=== PATIENT | male | born 1940 | race Caucasian/White ===

== ENCOUNTER 2017-01-17 16:27 | Observation (INO) | payer MEDICARE, BC ==
[2017-01-17 17:28] LABS: Hematocrit 41 % (42-52); Hemoglobin 14.3 g/dl (14.0-18.0); Mean Corpuscular HGB Conc 35 g/dl (31-36); Mean Corpuscular Hemoglobin 33 pg (27-31); Mean Corpuscular Volume 95 fL (80-94); Mean Platelet Volume 8 um3 (7.4-10.4); Red Blood Count 4.37 10^6/ul (4.0-5.4); Red Cell Distribution Width 13 % (10.5-15); White Blood Count 7.1 10^3/ul (3.5-10.8)
[2017-01-17 17:51] LABS: ALT 17 U/L (7-52); AST 21 U/L (13-39); Alkaline Phosphatase 84 U/L (34-104); Anion Gap 11 mmol/L (2-11); BUN/Creatinine Ratio 18.3 (8-20); Blood Urea Nitrogen 24 mg/dL (6-24); CO2 Carbon Dioxide 23 mmol/L (22-32); Calcium 9.4 mg/dL (8.6-10.3); Chloride 97 mmol/L (101-111); EGFR African American 68.4 (>60); EGFR Non-African American 53.2 (>60); Globulin 3.2 g/dL (2-4); Glucose 245 mg/dL (70-100); Magnesium 1.5 mg/dL (1.9-2.7); Potassium 4.2 mmol/L (3.5-5.0); Sodium 131 mmol/L (133-145); Total Protein 7.2 g/dL (6.4-8.9)
--- NOTE | 2017-01-17 17:53 | RAD ---
Indication: Palpitations. Single frontal view of the chest performed at 1730 hours was reviewed. Comparison is made with previous exam dated June 16, 2016. No mediastinal shift is noted. Heart is of normal size and configuration. Lung galvez appear clear. IMPRESSION: NO ACTIVE CARDIOPULMONARY DISEASE IS NOTED.
[2017-01-17 17:54] LABS: Troponin I 0.03 ng/mL (<0.04)
[2017-01-17 18:30] LABS: TSH (Thyroid Stimulating Horm) 1.23 mcIU/mL (0.34-5.60)
[2017-01-17] MEDS ORDERED: Diltiazem IV* 5 MG/ML 5 ML VIAL (for loading dose/IV Push) (25 MG) IV SLOW PU ONE (18:35)
[2017-01-17] MEDS ORDERED: Diltiazem IV VIAL* 125 MG in D5W 100 ML BAG* 100 ML IV ONE (18:36)
[2017-01-17] MEDS ORDERED: D5W 100 ML BAG* 100 ML ONE (18:41)
--- NOTE | 2017-01-17 19:42 | HP ---
H&P (Free Text) History and Physical: PCP: Fawn Barajas MD Date/Time of Evaluation: 01/17/2017 193 CC: new irregular HR found at Nj Hitchcock MD's office HPI: Mr Mata is a 76YO male presented this afternoon to Nj Hitchcock's office for routine follow up of initiation of amlodipine when a new irregular rhythm was discovered and he was recommended to come to [facility] [place] [place] ED for further evaluation. Mr Mata denies any symptoms, specifically no chest pain/pressure, SOB, palpitations, N/V, sweating, light-headedness, or other issues. He has noticed some unsteadiness while in the shower when he closes his eyes, but denies unsteady gait or recent falls. Evaluation reveals an ECG showing AFLUT/RVR. Vitals are stable. Labs are notable for an unexplained macrocytosis, stable CKD stage 3a, magnesium 1.5, BNP of 424, & troponin of 0.03. TSH is 1.23. PMedHx CAD/stent x2 DM2 w/ BLE polyneuropathy HTN HLD [place]-Schlatter disease HX YOVANY relieved w/ weight loss GERD BPH erectile dysfunction Allergies No Known Allergies Allergy (Verified 04/06/13 07:27) Ambulatory Orders Pantoprazole TAB (NF) [Protonix TAB (NF)] 40 mg PO BEDTIME 10/19/12 Sildenafil Citrate [Viagra] 25 mg PO DAILY PRN 10/19/12 Terazosin CAP* [Hytrin CAP*] 5 mg PO DAILY 10/19/12 Tadalafil [Cialis] 20 mg PO DAILY PRN 01/14/13 Clopidogrel TAB* [Plavix TAB*] 75 mg PO DAILY 01/27/14 Finasteride TAB* [Proscar TAB*] 5 mg PO DAILY 12/12/16 glipiZIDE TAB.XL* [Glucotrol Xl*] 10 mg PO BID 12/12/16 Aspirin EC Low Dose* [Ecotrin EC Low Dose 81 MG*] 81 mg PO DAILY 01/17/17 Lisinopril [Lisinopril 40 MG-] 40 mg PO DAILY 01/17/17 amLODIPine TAB* [Norvasc TAB*] 2.5 mg PO DAILY 01/17/17 PSurgHx tonsillectomy cardiac stent x2 appendectomy inguinal hernia repair R FRIEDA SocHx: former smoker quit ~30years ago, minimal alcohol, no recreational drugs; 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 with his ; 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, 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[employer]; full 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 status FamHx: positive for HTN, DM2 ROS: as above, otherwise reviewed and all were negative Constitutional: NAD, normally developed, overweight white male vitals: Vital Signs Temp 36.4 C 01/17/17 20:16 Pulse 81 01/17/17 20:16 Resp 20 01/17/17 20:16 BP 146/77 01/17/17 20:16 Pulse Ox 97 01/17/17 20:00 Intake & Output 01/16/17 01/17/17 01/17/17 23:59 11:59 23:59 Weight 86.183 kg HEENM: atraumatic; sclera/conjunctiva: non-icteric/clear; hearing: clinically intact; oropharynx: clear, mucosa moist Neck: soft tissue: non-tender; thyroid: normal Pulmonary: clear to auscultation bilaterally, good aeration, no accessory muscle use CV: RR/RR, normal S1S2, no carotid bruit, no jugular venous distention, 2+ B DP/ PT, no edema Abdominal: soft, non-distended, non-tender, no rebound/guarding/rigidity, normoactive bowel sounds, no hepatosplenomegaly or masses, no costovertebral angle tenderness Musculoskeletal: general: grossly intact; gait: stable Integumental: normal appearance and texture of exposed skin Psychiatric orientation: AA&O to PPS affect: calm mood: jovial eye contact: good content: reliable responses: timely insight: good Testing: Lab Results 01/17/17 01/17/17 01/17/17 Range/Units 17:12 17:12 17:12 WBC 7.1 (3.5-10.8) 10^3/ul RBC 4.37 (4.0-5.4) 10^6/ul Hgb 14.3 (14.0-18.0) g/dl Hct 41 L (42-52) % MCV 95 H (80-94) fL MCH 33 H (27-31) pg MCHC 35 (31-36) g/dl RDW 13 (10.5-15) % Plt Count 217 (150-450) 10^3/ul MPV 8 (7.4-10.4) um3 Neut % (Auto) 68.6 (38-83) % Lymph % (Auto) 16.8 L (25-47) % Divide % (Auto) 8.6 (1-9) % Eos % (Auto) 4.9 (0-6) % Baso % (Auto) 1.1 (0-2) % Absolute Neuts (auto) 4.9 (1.5-7.7) 10^3/ul Absolute Lymphs (auto) 1.2 (1.0-4.8) 10^3/ul Absolute Monos (auto) 0.6 (0-0.8) 10^3/ul Absolute Eos (auto) 0.4 (0-0.6) 10^3/ul Absolute Basos (auto) 0.1 (0-0.2) 10^3/ul Absolute Nucleated RBC 0 10^3/ul Nucleated RBC % 0.1 Sodium 131 L (133-145) mmol/L Potassium 4.2 (3.5-5.0) mmol/L Chloride 97 L (101-111) mmol/L Carbon Dioxide 23 (22-32) mmol/L Anion Gap 11 (2-11) mmol/L BUN 24 (6-24) mg/dL Creatinine 1.31 H (0.67-1.17) mg/dL Est GFR ( Amer) 68.4 (>60) Est GFR (Non-Af Amer) 53.2 (>60) BUN/Creatinine Ratio 18.3 (8-20) Glucose 245 H (70-100) mg/dL POC Glucose (mg/dL) (74-106) mg/dL Lactic Acid 1.8 (0.5-2.0) mmol/L Calcium 9.4 (8.6-10.3) mg/dL Magnesium 1.5 L (1.9-2.7) mg/dL Total Bilirubin 0.70 (0.2-1.0) mg/dL AST 21 (13-39) U/L ALT 17 (7-52) U/L Alkaline Phosphatase 84 (34-104) U/L Troponin I 0.03 (<0.04) ng/mL B-Natriuretic Peptide ( - 100) pg/mL Total Protein 7.2 (6.4-8.9) g/dL Albumin 4.0 (3.2-5.2) g/dL Globulin 3.2 (2-4) g/dL Albumin/Globulin Ratio 1.3 (1-3) TSH 1.23 (0.34-5.60) mcIU/mL 01/17/17 01/17/17 Range/Units 17:12 18:46 WBC (3.5-10.8) 10^3/ul RBC (4.0-5.4) 10^6/ul Hgb (14.0-18.0) g/dl Hct (42-52) % MCV (80-94) fL MCH (27-31) pg MCHC (31-36) g/dl RDW (10.5-15) % Plt Count (150-450) 10^3/ul MPV (7.4-10.4) um3 Neut % (Auto) (38-83) % Lymph % (Auto) (25-47) % Divide % (Auto) (1-9) % Eos % (Auto) (0-6) % Baso % (Auto) (0-2) % Absolute Neuts (auto) (1.5-7.7) 10^3/ul Absolute Lymphs (auto) (1.0-4.8) 10^3/ul Absolute Monos (auto) (0-0.8) 10^3/ul Absolute Eos (auto) (0-0.6) 10^3/ul Absolute Basos (auto) (0-0.2) 10^3/ul Absolute Nucleated RBC 10^3/ul Nucleated RBC % Sodium (133-145) mmol/L Potassium (3.5-5.0) mmol/L Chloride (101-111) mmol/L Carbon Dioxide (22-32) mmol/L Anion Gap (2-11) mmol/L BUN (6-24) mg/dL Creatinine (0.67-1.17) mg/dL Est GFR ( Amer) (>60) Est GFR (Non-Af Amer) (>60) BUN/Creatinine Ratio (8-20) Glucose (70-100) mg/dL POC Glucose (mg/dL) 181 H (74-106) mg/dL Lactic Acid (0.5-2.0) mmol/L Calcium (8.6-10.3) mg/dL Magnesium (1.9-2.7) mg/dL Total Bilirubin (0.2-1.0) mg/dL AST (13-39) U/L ALT (7-52) U/L Alkaline Phosphatase (34-104) U/L Troponin I (<0.04) ng/mL B-Natriuretic Peptide 424 H ( - 100) pg/mL Total Protein (6.4-8.9) g/dL Albumin (3.2-5.2) g/dL Globulin (2-4) g/dL Albumin/Globulin Ratio (1-3) TSH (0.34-5.60) mcIU/mL ECG, personally reviewed: AFLUT rate 124, no ischemia CXR, personally reviewed: IMPRESSION: NO ACTIVE CARDIOPULMONARY DISEASE IS NOTED. Impression: 76M presenting with incidental finding of asymptomatic AFLUT/RVF DIAGNOSIS & PLAN Primary AFLUT/RVR : [id number] 3, w/o fall risk, anticoagulation indicated; discussed various agents comparatively & he agrees w/ rivaroxaban : diltiazem bolus/GTT initiated in ED, continue : start heparin GTT tonight w/ plan to transition to rivaroxaban on discharge : supplemental oxygen : trend troponin : check ECHO in AM : consider formal cardiology consult in AM : will make NPO after midnight, in case a stress test is desired : supportive care hypoMagnesemia : replete & recheck Secondary macrocytosis : check B12 & folate CAD/stent x2 : continue aspirin/clopidogrel DM2 w/ BLE polyneuropathy : check A1c : continue glipizide : correctional lispro protocol : consistent carb diet HTN : hold amlodipine : plan to transition from diltiazem GTT to PO HLD : heart healthy diet GERD : continue pantoprazole BPH : continue finasteride Admission Rational: CDU observation for new onset AFLUT/RVR DVTp: heparin GTT Code Status: full HCP:
[2017-01-17] MEDS ORDERED: traMADol TAB* 50 MG PO PRN (20:31)
[2017-01-17] MEDS ORDERED: Ondansetron INJ* 2 MG/ML VIAL IV PRN (20:31)
[2017-01-17] MEDS ORDERED: Albuterol 2.5 MG/3 ML NEB.SOL* (0.083%) INH PRN (20:31)
[2017-01-17] MEDS ORDERED: Acetaminophen TAB* 325 MG PO PRN (20:31)
[2017-01-17] MEDS ORDERED: Melatonin (NF) 3 MG TAB PO PRN (20:31)
[2017-01-17] MEDS ORDERED: Magnesium Sulfate 2 GM IV* 2 GM/50 ML BAG IVPB ONE (20:45)
[2017-01-17] MEDS ORDERED: Heparin VIAL(*) 5000 UNITS/ML VIAL (FIVE THOUSAND) IV SCH (21:00)
[2017-01-17] MEDS ORDERED: Diltiazem IV VIAL* 125 MG in D5W 100 ML BAG* 100 ML IV SCH (21:00)
[2017-01-17 21:22] LABS: Folate > 20.00 ng/mL (>3.99)
[2017-01-17 21:23] LABS: Vitamin B12 654 pg/mL (180-914)
[2017-01-17] MEDS: glipiZIDE TAB.XL* 5 MG PO SCH (21:54)
[2017-01-17] MEDS: CMCS Pantoprazole TAB (NF) 40 MG TAB PO SCH (21:55)
[2017-01-17] MEDS: Insulin LISPRO* 1 UNITS UNIT SUBCUT SCH (21:56)
[2017-01-17] MEDS: Docusate CAP* 100 MG PO SCH (22:25)
[2017-01-17] MEDS: Heparin DRIP 25,000 UNITS(*) 25,000 UNITS/500 ML BAG IVPB SCH (22:48)
[2017-01-18 07:27] LABS: BUN/Creatinine Ratio 18.7 (8-20); Calcium 8.9 mg/dL (8.6-10.3); EGFR African American 63.9 (>60); EGFR Non-African American 49.7 (>60); Potassium 4.1 mmol/L (3.5-5.0)
[2017-01-18 07:29] LABS: Troponin I 0.02 ng/mL (<0.04)
[2017-01-18] MEDS: Insulin LISPRO* 1 UNITS UNIT SUBCUT SCH ×4 (08:08→20:35)
[2017-01-18] MEDS ORDERED: Clopidogrel TAB* 75 MG PO SCH (09:00)
[2017-01-18] MEDS ORDERED: amLODIPine TAB* 5 MG PO SCH (09:00)
[2017-01-18] MEDS ORDERED: Terazosin CAP* 1 MG PO SCH (09:00)
[2017-01-18] MEDS ORDERED: Midazolam* 1 MG/ML 5 ML VIAL (5 MG) ONE ×2 (14:41→14:53)
[2017-01-18] MEDS ORDERED: fentaNYL* 50 MCG/ML 2 ML VIAL (100 MCG VIAL) ONE (14:42)
[2017-01-18] MEDS ORDERED: Flumazenil* 0.1 MG/ML 5 ML MDV ONE (14:53)
[2017-01-18] MEDS ORDERED: Naloxone* 0.4 MG/ML 1 ML VIAL ONE (14:53)
--- NOTE | 2017-01-18 14:57 | ECHO ---
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 Completed at 1046. Left Ventricle: The left ventricular chamber size is decreased. Moderate concentric left ventricular hypertrophy is observed. There is increased basal septal hypertrophy noted without evidence of an increased gradient across the left ventricular outflow tract. The estimated ejection fraction is 55-60%. There is no consistent Doppler evidence of clinically significant diastolic dysfunction. Left Atrium: The left atrium is slightly dilated. Right Ventricle: The right ventricular cavity size is normal. The right ventricular global systolic function is normal. Right Atrium: The right atrial cavity size is normal. Aortic Valve: The aortic valve is trileaflet. The aortic valve leaflets are mildly thickened. There is mild thickening of the non coronary cusp. Systolic excursion of the non coronary cusp is reduced. There is no evidence of aortic regurgitation. There is no evidence of aortic stenosis. Mitral Valve: The mitral valve leaflets appear normal. There is trace to mild mitral regurgitation. There is no evidence of mitral stenosis. Tricuspid Valve: The tricuspid valve leaflets are normal. There is a physiologic tricuspid regurgitation. Unable to estimate the right ventricular systolic pressure. Pulmonic Valve: The pulmonic valve appears normal. There is no evidence of pulmonic regurgitation. There is no pulmonic stenosis. Pericardium: A pericardial fat pad is visualized. Aorta: There is no dilatation of the ascending aorta. There is no dilatation of the aortic arch. There is no dilation of the aortic root. Pulmonary Artery: The main pulmonary artery appears normal. Venous: The venous system is not well visualized. Conclusions Moderate concentric left ventricular hypertrophy is observed. There is increased basal septal hypertrophy noted without evidence of an increased gradient across the left ventricular outflow tract. The estimated ejection fraction is 55-60%. The left atrium is slightly dilated. The aortic valve leaflets are mildly thickened. Systolic excursion of the non coronary cusp is reduced. There is trace to mild mitral regurgitation. There is a physiologic tricuspid regurgitation. Similar to 11/2016 except that mild mitral stenosis was reported last time. Patient in atrial flutter this time. Measurements Name Value Normal Range RVIDd (AP) 2D 3.8 cm (0.9 - 2.6) RVDdMajor (2D) 3.4 cm (2.2 - 4.4) RAd ISD 4CH 5 cm (3.4 - 4.9) RA (A4C)W 3.4 cm (2.9 - 4.6) IVSd (2D) 1.5 cm (0.6 - 1) LVPWd (2D) 1.4 cm (0.6 - 1) LVIDd (2D) 3.5 cm (3.6 - 5.4) LVIDs (2D) 2.4 cm - LV FS (2D) 32 % (25 - 45) Aortic Annulus 2.1 cm (1.4 - 2.6) Ao root diameter (2D) 3.4 cm (2.1 - 3.5) Ascending Ao 3.3 cm (2.1 - 3.4) Aortic arch 2.9 cm (1.8 - 3.4) Descending Ao 0.5 cm - LA dimension (AP) 2D 3.9 cm (2.3 - 3.8) LAd ISD 4CH 5.4 cm (2.9 - 5.3) LA ISD 4CH W 4 cm (2.5 - 4.5) Name Value Normal Range LA ESV SP 4CH (A/L) 57 ml - LA ESV SP 2CH (A/L) 64 ml - LA ESV BP (A/L) 62 ml - LA ESV BP (A/L) index 30.9 ml/m2 - LA ESV SP 4CH (MOD) 55 ml - LA ESV SP 2CH (MOD) 61 ml - Name Value Normal Range MV E-wave Vmax 1.1 m/sec - MV deceleration time 113 msec - MV A-wave Vmax 1 m/sec - MV E:A ratio 1.06 ratio - LV septal e' Vmax 0.09 m/sec - LV lateral e' Vmax 0.07 m/sec - Name Value Normal Range AV Vmax 1.3 m/sec - AV VTI 26.7 cm - AV peak gradient 6.55 mmHg - AV mean gradient 3.2 mmHg - LVOT Vmax 0.8 m/sec - LVOT VTI 16.4 cm - LVOT peak gradient 2.32 mmHg - LVOT mean gradient 0.98 mmHg - Name Value Normal Range TR Vmax 2.4 m/sec - TR peak gradient 23 mmHg - RAP 8 mmHg - RVSP 31 mmHg - Name Value Normal Range PV Vmax 0.6 m/sec - PV peak gradient 1.7 mmHg -
[2017-01-18] MEDS ORDERED: Metoprolol Tartrate IV* 1 MG/ML 5 ML VIAL ONE (15:16)
[2017-01-18] MEDS: glipiZIDE TAB.XL* 5 MG PO SCH ×2 (15:53→20:25)
[2017-01-18] MEDS: Docusate CAP* 100 MG PO SCH ×2 (15:53→20:25)
[2017-01-18] MEDS: Aspirin EC Low Dose* 81 MG TAB.EC PO SCH (15:53)
[2017-01-18] MEDS: Finasteride TAB* 5 MG PO SCH (15:53)
[2017-01-18] MEDS: Lisinopril TAB* 10 MG PO SCH (15:53)
[2017-01-18] MEDS ORDERED: Atenolol TAB* 25 MG PO ONE (16:06)
[2017-01-18] MEDS: CMCS Pantoprazole TAB (NF) 40 MG TAB PO SCH (20:25)
--- NOTE | 2017-01-18 20:30 | TEE ---
Patient: JON BENTON [facility] Rec#: [id number] : 1940 Date: 01/18/2017 Age: 76y Height: 177.8 cm / 70.0 in Weight: 86.2 kg / 190.0 lbs Sex: M BSA: 2 Room#: [facility] Admit Date#: 01/17/2017 Type: Inpatient Referring: Sarah Bennett MD Performing: Silas Mccurdy MD Reading: Silas Mccurdy MD Lead Applications Developer: Nicolle Ladd RN RDCS Nurse: Mercedez Zamora RN CC: Ron Barajas MD Transesophageal Echocardiogram Indication: Atrial flutter BP: 136/73 HR: 84 Rhythm: A-Flutter Findings History: CAD, DM, HTN, HLD, former smoker, YOVANY in the past, [place]-Schlatter disease. Technical Comments: The study quality is good. No transgastric images were obtained due to the history of Schatzki Ring. Left Ventricle: The left ventricular chamber size is normal. Global left ventricular wall motion and contractility are within normal limits. There is normal left ventricular systolic function. The estimated ejection fraction is 55-60%. Left Atrium: The left atrium is mildly dilated. Spontaneous echo contrast is present in the left atrium cavity. No thrombus is visualized within the left atrium. There is no thrombus visualized in the left atrial appendage. Right Ventricle: The right ventricular cavity size is normal. The right ventricular global systolic function is normal. Right Atrium: The right atrial cavity size is normal. A prominent chiari network is noted in the right atrium. Interatrial septum appears intact without evidence of shunting. There is no patent foramen ovale visualized. The interatrial septum is mobile. A patent foramen ovale is not demonstrated with color Doppler and agitated contrast. Delayed appearance of saline contrast bubbles is noted in the left atrium indicating intrapulmonary shunting. Aortic Valve: The aortic valve is trileaflet. The aortic valve leaflets are mildly thickened. There is moderate thickening of the non coronary cusp. Systolic excursion of the non coronary cusp is reduced. There is aortic annular calcification. There is a trace of aortic regurgitation. There is mild aortic stenosis. Mitral Valve: The mitral valve leaflets are mildly thickened. Mitral valve leaflet mobility is mildly restricted. There is trace to mild mitral regurgitation. There is mild mitral stenosis. Tricuspid Valve: The tricuspid valve leaflets are normal. There is trace tricuspid regurgitation. Pulmonic Valve: The pulmonic valve structure is not well visualized. Pericardium: There is no significant pericardial effusion. Aorta: There is no dilatation of the ascending aorta. The aortic root is normal in size. There is mild atherosclerotic plaque seen in the aorta. Pulmonary Artery: The main pulmonary artery is not well visualized. Venous: The bicaval view was obtained and appears normal. The pulmonary veins appear normal. 2 of 4 pulmonary veins are visualized. NATALIE Procedures: History and physical as well as labs were reviewed. The patient was in a fasting state. Risks and benefits of the procedure, including alternatives, were discussed and written informed consent was obtained. The patient and/or their health care life assurance representative expressed understanding of the procedure, risks and benefits. Baseline and continuous monitoring of blood pressure, heart rate, pulse oximetry and heart rhythm was performed throughout the procedure. The appropriate time-out procedure was performed as per [facility] protocol. The patient was placed in the left lateral decubitus position. The patient received IV Midazolam with a total dose of 4 mg. The patient received IV Fentanyl with a total dose of 25 mcg. An oral bite block was inserted for protection of oral dentition. The multiplane transesophageal echocardiogram probe was inserted through the posterior oropharynx and advanced into the esophagus without difficulty. Multiple 2D images were obtained of the heart and its related structures. Color flow Doppler was used for evaluation. Spectral Doppler was also used. The transgastric view was not obtained as it was contraindicated by the patient's medical condition. The atrial septum was interrogated with color flow Doppler. At the conclusion of the procedure the probe was removed with continuous suction without complications. The patient tolerated the procedure with no apparent complications. Contrast: Normal saline was used as contrast for the bubble study. Image 56. Conclusions Global left ventricular wall motion and contractility are within normal limits. The estimated ejection fraction is 55-60%. The left atrium is mildly dilated. Spontaneous echo contrast is present in the left atrium cavity. No thrombus is visualized within the left atrium or the left atrial appendage. There is mild aortic stenosis. Mitral valve leaflet mobility is mildly restricted. There is trace to mild mitral regurgitation. There is mild mitral stenosis. There is mild atherosclerotic plaque seen in the aorta. Measurements Name Value Normal Range Aortic Annulus 2.5 cm (1.4 - 2.6) Ao root diameter (2D) 3.2 cm (2.1 - 3.5) Ascending Ao 3 cm (2.1 - 3.4) Name Value Normal Range MV E-wave Vmax 0.96 m/sec - MV deceleration time 153 msec - Name Value Normal Range MV Vmax 1 m/sec - MV VTI 17.8 cm - MV peak gradient 4 mmHg - MV mean gradient 1.9 mmHg - MV PHT 56 msec - MVA (PHT) 3.9 cm2 -
[2017-01-18] MEDS: Heparin DRIP 25,000 UNITS(*) 25,000 UNITS/500 ML BAG IVPB SCH (21:55)
--- NOTE | 2017-01-18 22:41 | CONS ---
CC: Dr. Barajas; Dr. Hitchcock CARDIOLOGY CONSULTATION REPORT: DATE OF CONSULT: 01/18/17 PATIENT OF: Dr. Barajas and Dr. Hitchcock CONSULTING: Sarah Bennett MD REASON FOR EVALUATION: Atrial flutter. 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 He was asymptomatic. He reports that he was in his usual state of his health until about 3 weeks ago when he was noted to have high blood pressure and was started on amlodipine 2.5 mg a day. About a week ago, he said that he took 2 tablets of Cialis and did not get the appropriate effect and took a 25 mg dose of Viagra. He subsequently developed low blood pressures and felt weak. He took his home blood pressure and his blood pressures were in the 60s. He stopped all his medicines for 4 days including atenolol and then restarted his medicines. He was seen in the office for followup evaluation of his blood pressure and was noted to be in atrial flutter with a rapid ventricular response. He reports that he is completely asymptomatic. He denies any syncope, near syncope, chest pain, orthopnea, or PND. He does drink 3 drinks a week and has two large mugs of coffee that is equivalent to 4 mugs of coffee a day. 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 He says everyday he is out fixing things, doing chores, chopping wood and has no problem doing that. He denies syncope, no orthopnea, no peripheral edema. He does have a history of heart disease but presented with dyspnea, not chest discomfort. PAST MEDICAL HISTORY: His past medical history includes coronary disease, status post stenting x2 in 2012 in [place], diabetes, bilateral lower extremity neuropathy. He lost 40 pounds over the last year or so and he has been able to reduce his diabetic medicine and eliminate using the CPAP and eliminate his gout medications. He has a history of hypertension, hyperlipidemia, [place] Schlatter disease, obstructive sleep apnea relieved with weight loss, gastroesophageal reflux, BPH, erectile dysfunction, gout. He also had retinal tears in April requiring surgery. He also has a history of Schatzki' s ring and has had that treated by anjel last time about 5 years ago. He saw Dr. Kerns recently and is asymptomatic. PAST SURGICAL HISTORY: Include stenting 5 years ago, coronary stenting. He has had Schatzki's ring bougied, cataract removal, right hip replacement, and retinal laser surgery for tear in April. MEDICATIONS: According to our office note include: 1. Amlodipine 2.5 mg a day. 2. Atenolol 25 mg a day. 3. Aspirin 325 mg a day. 4. Terazosin 5 mg a day. 5. Amoxicillin p.r.n. procedures for SB prophylaxis for his hip. 6. Pantoprazole 40 mg a day. 7. Viagra 25 mg p.r.n. 8. Lisinopril 40 mg a day. 9. Glipizide 10 mg a day. 10. Cialis 10 mg a day. 11. Clopidogrel 75 mg a day. ALLERGIES: He has no known drug allergies. FAMILY HISTORY: His father of heart issues. He had a sibling of lung cancer. SOCIAL HISTORY: He is . He lives with his . He has two adult children. ROS: neg x 12 except as above. PHYSICAL EXAM: He is well developed, well nourished gentleman, in no apparent distress. No significant JVD. See full sheet for vital signs. Heart rate in the 80s, blood pressure was 113/65 at 1 a.m. Extraocular muscles intact. Sclerae anicteric. Carotids 2+ without bruits. No cervical adenopathy, no thyromegaly. Chest: Clear. Abdomen: Obese. Bowel sounds present. Nontender , no hepatosplenomegaly. Femoral pulses intact without bruits. Distal pulses intact. No edema. Motor strength 5/5 strength bilaterally, deep tendon reflexes 2/4. Alert and oriented x3. DIAGNOSTIC STUDIES/LAB DATA: Include sodium 134, potassium 4.1, BUN 26, creatinine of 1.9, which usually runs between 1.5 and 2. It was 1.2 in October. White count 7.1, hematocrit 41, MCV 95. EKG from yesterday revealed atrial flutter with RSR prime in V1, counterclockwise rotation and the Aflutter was new compared to previous May 2016 when he had sinus neil at 46. His EKG from this morning revealed atrial flutter with controlled ventricular response in the 70s, counterclockwise rotation, RSR prime in V1. Troponin was 0.03 and 0.02. Chest x-ray, no active cardiopulmonary disease and he did have an echocardiogram performed which revealed trace to mild MR, trace TR, normal LV function, mild aortic sclerosis. IMPRESSION: My impression is that Mr. Mata has new onset of atrial flutter uncertain duration but probably started in the last 3 weeks when he was seen in the office 3 weeks ago. The Aflutter may have been contributed to by holding his beta- ezeqiuel for 4 days. He also has a history of sleep apnea, diabetes, hypertension, and obesity in the past and his age which will also contribute to the likelihood of recurrent Aflutter, AFib. I did discuss with him and his the diagnosis and prognosis, we discussed the importance of anticoagulation given his increased risk of CVA. We also discussed potential for bleeding. We also explained that we need to control his rate to avoid tachycardia induced cardiomyopathy and dysfunction. They also understand that he may have recurrent Aflutter despite attempt at cardioversion. We also discussed the importance of continuous medicines without interruption and dangers of taking too much Viagra or Cialis in the setting of multiple antihypertensive medicines which could contribute to hypotension and might be life threatening. We also discussed potential for esophageal injury given the history of Schatzki's ring. However, that has been stable with no symptoms, this most likely is relatively low risk situation. Informed consent was discussed and patient understands and agrees to proceed with the proposed transesophageal echocardiogram and cardioversion. I also placed a call to Dr. Kerns, he is not available and discussed the case with Dr. Hitchcock. For the time being, I have recommended the following: We will continue his rate control for now. He is to continue anticoagulation. We will perform a NATALIE guided cardioversion. He understands the potential risk of stroke and esophageal injury and sleep apnea. technician terminal and repeater I would avoid triple anticoagulation therapy given the increased risk of bleeding as discussed with Dr. Hitchcock. I think it is reasonable to stop his Plavix now it has been 5 years since his stenting. He would avoid caffeine and alcohol which could lower the threshold for his atrial flutter. We would continue anticoagulation indefinitely. If he has recurrent atrial flutter we could consider either antiarrhythmic therapy or a referral for ablation. He is to follow up with Dr. Hitchcock concerning these issues. [id number]/[facility] #: [id number] ERICA
[2017-01-19] MEDS: Docusate CAP* 100 MG PO SCH (07:25)
[2017-01-19] MEDS: Insulin LISPRO* 1 UNITS UNIT SUBCUT SCH ×2 (07:44→11:26)
[2017-01-19 08:05] VITALS: BP 133/71
[2017-01-19] MEDS ORDERED: Terazosin CAP* 5 MG PO SCH (09:00)
[2017-01-19] MEDS: Lisinopril TAB* 10 MG PO SCH (09:03)
[2017-01-19] MEDS: Finasteride TAB* 5 MG PO SCH (09:03)
[2017-01-19] MEDS: glipiZIDE TAB.XL* 5 MG PO SCH (09:03)
[2017-01-19] MEDS: Aspirin EC Low Dose* 81 MG TAB.EC PO SCH (10:41)
[2017-01-19] MEDS ORDERED: Apixaban* 5 MG TAB PO SCH (11:00)
--- NOTE | 2017-01-19 12:55 | DS ---
CC: Ron Barajas MD; Yogesh Hitchcock MD DISCHARGE SUMMARY: DATE OF ADMISSION: 01/17/17 DATE OF DISCHARGE: 01/19/17 DISCHARGE DIAGNOSES: 1. Atrial flutter. 2. History of hypertension. 3. Type 2 diabetes mellitus with peripheral neuropathy. 4. History of gastroesophageal reflux disease. 5. History of benign prostatic hypertrophy. 6. Erectile dysfunction. 7. History of coronary artery disease, status post 2 stents. 8. History of Schatzki's ring. HISTORY: aDrio Mata is a 76-year-old man admitted after he was found to be in atrial flutter at his development specialist's office. Please see the dictated admission note for details of the present illness, past medical history, family history, social and personal history, review of systems, and physical examination. An addition to the history is that he had actually taken high doses of Viagra and Cialis, felt poorly after that. He then took his blood pressure with his blood pressure cuff and found blood pressure in the 60s ( blood pressure cuff inaccurate). He then stopped taking his medications for 4 days. LABORATORY DATA: CBC on admission, WBC is 7.1, H and H 14.3/41, MCV 95, PLT 217 ,000. PTT on 01/17/17 was 25, 01/18/17 was 94.1, 01/18/17 was 65.9, 01/19/17 was 59.9. Chemistries on admission, sodium 131, potassium 4.2, chloride 97, CO2 23, BUN and creatinine 24/1.31, glucose 245, magnesium 1.5. Rest of the comprehensive metabolic panel was within normal limits. Troponin was 0.03, 0.03 , 0.02. Lactic acid 1.8. Hemoglobin A1c was elevated at 8.7%. BNP was 424 and 323. Folate, B12, TSH all normal. Glucoses ranged from 118 to 321. IMAGING: Chest x-ray on 01/17/17 showed no active cardiopulmonary disease. EKG on 01/17/17 showed atrial flutter with controlled ventricular response. EKG on 01/18/17 showed atrial flutter with 4:1 AV block, prolonged QTC. Transthoracic echocardiogram on 01/18/17 showed concentric LVH, basal septal hypertrophy, EF 55% to 60%, slight dilatation of the left atrium, mild aortic sclerosis, physiologic tricuspid regurgitation, mild mitral stenosis reported previously reported, not noted. Transesophageal echocardiogram, 01/18/17, showed no thrombus, mild left atrial dilatation, mild aortic stenosis, mild mitral stenosis. The patient had IV fentanyl 25 mcg and then underwent cardioversion and converted to sinus rhythm. Cardiology consultation Dr. Mccurdy, 01/17/17, felt that he had new onset of atrial flutter of uncertain duration, probably less than 3 weeks. He felt that it might have been that he had taken too much Viagra and Cialis. He recommended NATALIE cardioversion. Post cardioversion, he recommended discontinuing Plavix and heparin, starting Eliquis. He recommended continuing aspirin. He recommended restarting atenolol at low dose 12.5 mg. He is said to consider lowering the dose of lisinopril depending on his blood pressure. He recommended avoiding Cialis and Viagra (for now). He recommended the patient to check his blood pressure and pulse at home and to follow up. The patient was admitted. He was monitored. He underwent studies as noted above. His telemetry monitoring showed atrial flutter before cardioversion, sinus neil post cardioversion. His blood sugars were monitored. He was on heparin initially. At the time of discharge, he is feeling fine. He was feeling fine when he was admitted. His diet is to be his usual. He was told to not overdo caffeine. Activities as tolerated. DISCHARGE MEDICATIONS: 1. Aspirin 81 mg daily. 2. Eliquis 5 mg twice daily. 3. Atenolol 25 mg 1/2 pill once daily. 4. Lisinopril 40 mg once daily. 5. Glipizide extended release 10 mg twice daily. 6. Finasteride 5 mg once daily. 7. Pantoprazole 40 mg once daily. He was told to check his pulse daily, check his blood pressure daily, notify his MD if his pulse is over 80. He was told to not take amlodipine for now. He is to stop clopidogrel, he is to avoid Cialis and Viagra for now. His magnesium was noted to be slightly low in the hospital, this should be rechecked at the time of his doctor's visit. [id number]/[facility] #: [id number] [facility] HEALTH SYSTEMNikole
[2017-01-20] MEDS ORDERED: Lisinopril TAB* 10 MG PO SCH (09:00)
[2017-01-20] MEDS ORDERED: Atenolol TAB* 25 MG PO SCH (09:00)
--- NOTE | 2017-01-20 17:07 | ED ---
Yonathan Bertrand Anna, scribed for Frank Harris MD on 01/17/17 at 1651 . Palpitations / Dysrhythmia - HPI Summary HPI Summary: Patient is a 76 y/o male coming to [facility] after sudden onset of an episode of palpitations that occurred this afternoon. The patient was at his laundry washer s office when he had a slightly irregular heart rate according to an EKG conducted there. He has no current pain. His HR is varying from 110 to 130. His appointment with his laundry washer was to follow up from a recent switch to Amlodipine. His history is significant for CAD, HTN, HLD, NIDDM. 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 - Accompanied by family - Allergy/Home Medications Allergies/Adverse Reactions: Allergies Allergy/AdvReac Type Severity Reaction Status Date / Time No Known Allergies Allergy Verified 04/06/13 07:27 Home Medications: Home Medications Aspirin EC Low Dose* [Ecotrin EC Low Dose 81 MG*] 81 mg PO DAILY 01/17/17 [ History Confirmed 01/17/17] Lisinopril [Lisinopril 40 MG-] 40 mg PO DAILY 01/17/17 [History Confirmed ] amLODIPine TAB* [Norvasc TAB*] 2.5 mg PO DAILY 01/17/17 [History Confirmed 01/17] PMH/Surg Hx/FS Hx/Imm Hx Endocrine/Hematology History: Reports: Hx Diabetes Cardiovascular History: Reports: Hx Angina, Hx Coronary Artery Disease, Hx Hypercholesterolemia, Hx Hypertension Denies: Hx Myocardial Infarction, Hx Valvular Heart Disease Respiratory History: Reports: Hx Sleep Apnea Denies: Hx Asthma, Hx Chronic Obstructive Pulmonary Disease (COPD) GI History: Reports: Other GI Disorders - SHATSKY'S RING History: Reports: Hx Kidney Stones - DISTANT PAST -= NONE NOW Musculoskeletal History: Reports: Hx Arthritis - OSTEOARTHRITIS Sensory History: Reports: Hx Cataracts - BILATERAL, Hx Contacts or Glasses - GLASSES Denies: Hx Hearing Aid Opthamlomology History: Reports: Hx Cataracts - BILATERAL, Hx Contacts or Glasses - GLASSES - Surgical History Surgery Procedure, Year, and Place: LEFT HIP REPLACEMENT Hx Anesthesia Reactions: No Infectious Disease History: No Infectious Disease History: Denies: Traveled Outside the [place] in Last 30 Days - Family History Known Family History: Positive: Hypertension - Social History Lives: With Family Alcohol Use: Weekly Alcohol Amount: 4/week Substance Use Type: Reports: None Smoking Status (MU): Former Smoker Type: Cigarettes Amount Used/How Often: 3 ppd Have You Smoked in the Last Year: No Review of Systems Constitutional: Negative Eyes: Negative ENT: Negative Positive: Palpitations Respiratory: Negative Gastrointestinal: Negative Genitourinary: Negative Musculoskeletal: Negative Skin: Negative Neurological: Negative Psychological: Normal All Other Systems Reviewed And Are Negative: Yes Physical Exam Triage Information Reviewed: Yes Vital Signs On Initial Exam: Initial Vitals Temp Pulse Resp BP Pulse Ox 97.1 F 68 20 135/96 98 01/17/17 16:29 01/17/17 16:29 01/17/17 16:29 01/17/17 16:29 01/17/17 16:29 Vital Signs Reviewed: Yes Appearance: Positive: Well-Appearing, No Pain Distress Skin: Positive: Warm, Skin Color Reflects Adequate Perfusion, Dry Head/Face: Positive: Normal Head/Face Inspection Eyes: Positive: Normal ENT: Positive: Normal ENT inspection Neck: Positive: Supple, Nontender Respiratory/Lung Sounds: Positive: Clear to Auscultation, Breath Sounds Present Cardiovascular: Positive: IRR. Negative: RRR Abdomen Description: Positive: Nontender, Soft Bowel Sounds: Positive: Present Musculoskeletal: Positive: Normal Neurological: Positive: Normal Psychiatric: Positive: Affect/Mood Appropriate Diagnostics - Vital Signs Vital Signs Temp Pulse Resp BP Pulse Ox 01/17/17 16:29 97.1 F 68 20 135/96 98 - Laboratory Lab Results: Lab Results 01/17/17 01/17/17 01/17/17 Range/Units 17:12 17:12 17:12 WBC 7.1 (3.5-10.8) 10^3/ul RBC 4.37 (4.0-5.4) 10^6/ul Hgb 14.3 (14.0-18.0) g/dl Hct 41 L (42-52) % MCV 95 H (80-94) fL MCH 33 H (27-31) pg MCHC 35 (31-36) g/dl RDW 13 (10.5-15) % Plt Count 217 (150-450) 10^3/ul MPV 8 (7.4-10.4) um3 Neut % (Auto) 68.6 (38-83) % Lymph % (Auto) 16.8 L (25-47) % [place] % (Auto) 8.6 (1-9) % Eos % (Auto) 4.9 (0-6) % Baso % (Auto) 1.1 (0-2) % Absolute Neuts (auto) 4.9 (1.5-7.7) 10^3/ul Absolute Lymphs (auto) 1.2 (1.0-4.8) 10^3/ul Absolute Monos (auto) 0.6 (0-0.8) 10^3/ul Absolute Eos (auto) 0.4 (0-0.6) 10^3/ul Absolute Basos (auto) 0.1 (0-0.2) 10^3/ul Absolute Nucleated RBC 0 10^3/ul Nucleated RBC % 0.1 Sodium 131 L (133-145) mmol/L Potassium 4.2 (3.5-5.0) mmol/L Chloride 97 L (101-111) mmol/L Carbon Dioxide 23 (22-32) mmol/L Anion Gap 11 (2-11) mmol/L BUN 24 (6-24) mg/dL Creatinine 1.31 H (0.67-1.17) mg/dL Est GFR ( Amer) 68.4 (>60) Est GFR (Non-Af Amer) 53.2 (>60) BUN/Creatinine Ratio 18.3 (8-20) Glucose 245 H (70-100) mg/dL POC Glucose (mg/dL) (74-106) mg/dL Hemoglobin A1c (Less than 6.0) % Lactic Acid 1.8 (0.5-2.0) mmol/L Calcium 9.4 (8.6-10.3) mg/dL Magnesium 1.5 L (1.9-2.7) mg/dL Total Bilirubin 0.70 (0.2-1.0) mg/dL AST 21 (13-39) U/L ALT 17 (7-52) U/L Alkaline Phosphatase 84 (34-104) U/L Troponin I 0.03 (<0.04) ng/mL B-Natriuretic Peptide ( - 100) pg/mL Total Protein 7.2 (6.4-8.9) g/dL Albumin 4.0 (3.2-5.2) g/dL Globulin 3.2 (2-4) g/dL Albumin/Globulin Ratio 1.3 (1-3) Vitamin B12 654 (180-914) pg/mL Folate > 20.00 (>3.99) ng/mL TSH 1.23 (0.34-5.60) mcIU/mL 01/17/17 01/17/17 01/17/17 Range/Units 17:12 17:12 18:46 WBC (3.5-10.8) 10^3/ul RBC (4.0-5.4) 10^6/ul Hgb (14.0-18.0) g/dl Hct (42-52) % MCV (80-94) fL MCH (27-31) pg MCHC (31-36) g/dl RDW (10.5-15) % Plt Count (150-450) 10^3/ul MPV (7.4-10.4) um3 Neut % (Auto) (38-83) % Lymph % (Auto) (25-47) % [place] % (Auto) (1-9) % Eos % (Auto) (0-6) % Baso % (Auto) (0-2) % Absolute Neuts (auto) (1.5-7.7) 10^3/ul Absolute Lymphs (auto) (1.0-4.8) 10^3/ul Absolute Monos (auto) (0-0.8) 10^3/ul Absolute Eos (auto) (0-0.6) 10^3/ul Absolute Basos (auto) (0-0.2) 10^3/ul Absolute Nucleated RBC 10^3/ul Nucleated RBC % Sodium (133-145) mmol/L Potassium (3.5-5.0) mmol/L Chloride (101-111) mmol/L Carbon Dioxide (22-32) mmol/L Anion Gap (2-11) mmol/L BUN (6-24) mg/dL Creatinine (0.67-1.17) mg/dL Est GFR ( Amer) (>60) Est GFR (Non-Af Amer) (>60) BUN/Creatinine Ratio (8-20) Glucose (70-100) mg/dL POC Glucose (mg/dL) 181 H (74-106) mg/dL Hemoglobin A1c 8.7 H (Less than 6.0) % Lactic Acid (0.5-2.0) mmol/L Calcium (8.6-10.3) mg/dL Magnesium (1.9-2.7) mg/dL Total Bilirubin (0.2-1.0) mg/dL AST (13-39) U/L ALT (7-52) U/L Alkaline Phosphatase (34-104) U/L Troponin I (<0.04) ng/mL B-Natriuretic Peptide 424 H ( - 100) pg/mL Total Protein (6.4-8.9) g/dL Albumin (3.2-5.2) g/dL Globulin (2-4) g/dL Albumin/Globulin Ratio (1-3) Vitamin B12 (180-914) pg/mL Folate (>3.99) ng/mL TSH (0.34-5.60) mcIU/mL Result Diagrams: 01/17/17 17:12 01/18/17 07:00 Lab Statement: Any lab studies that have been ordered have been reviewed, and results considered in the medical decision making process. - Radiology CXR Xray Interpretation: No Acute Changes Radiology Interpretation Completed By: Radiologist - IMPRESSION: NO ACTIVE CARDIOPULMONARY DISEASE IS NOTED. - EKG 1640 Cardiac Rate: Tachycardia - 124 bpm EKG Rhythm: Atrial Flutter - variant from 2 to 1 to 5 to 1 block Course/Dx - Course Course Of Treatment: Mr. Mata was found durin a routine visit with the laundry washer to have A-Flutter with a relatively rapid response. He is asymptomatic and it is unclear how long this has been going on. He was slowed with cardizem and admitted by the hospitalist. - Diagnoses Provider Diagnoses: Atrial flutter with rapid ventricular response - Physician Notifications Discussed Care Of Patient With: Dr. Doherty (hospitalist) at 1922. Agrees to accept patient for admission. - Critical Care Time Critical Care Time: 30-74 min Discharge - Discharge Plan Condition: Stable Disposition: ADMITTED TO [facility] documentation as recorded by the Yonathan mares Anna accurately reflects the service I personally performed and the decisions made by me, Frank Harris MD.
== END 2017-01-19 12:30 | disposition home or self-care (01) ==
LOC: ED 16:27 → MEDTELE 19:23
PROVIDERS: ADMIT Hospitalist; ATTEND Internal Medicine Geriatric Medicine
DX: I48.92 Unspecified atrial flutter (principal); I10 Essential (primary) hypertension; E11.42 Type 2 diabetes mellitus with diabetic polyneuropathy; K21.9 Gastro-esophageal reflux disease without esophagitis; D75.89 Other specified diseases of blood and blood-forming organs; N40.0 Benign prostatic hyperplasia without lower urinary tract symptoms; I25.10 Atherosclerotic heart disease of native coronary artery without angina pectoris; I51.7 Cardiomegaly; Z95.5 Presence of coronary angioplasty implant and graft; K22.2 Esophageal obstruction; M92.50 Unspecified juvenile osteochondrosis of tibia and fibula; Z87.891 Personal history of nicotine dependence; Z79.01 Long term (current) use of anticoagulants; Z79.82 Long term (current) use of aspirin; Z79.84 Long term (current) use of oral hypoglycemic drugs; Z79.899 Other long term (current) drug therapy
CPT/HCPCS: 36415; 71010; 80048; 80053; 82607; 82746; 83036; 83605; 83735; 83880; 84443; 84484; 85025; 85730; 92960; 93005; 93312; 93325; 96365; 96366; 96367; 96372; 99291; A9270-GY; G0378; J1644; J2250; J2310; J3010

== ENCOUNTER 2017-01-22 18:55 | Emergency (ER) | payer MEDICARE, BC ==
[2017-01-22 19:04] VITALS: BP 141/71
--- NOTE | 2017-01-22 20:27 | ED ---
Skin Complaint - HPI Summary HPI Summary: Pt here w/ prolonged bleeding s/p finger slice on mandolin while preparing dinner tonight. He just started heparin and Eliquis this week as he's s/p cardiac procedure. Tetanus is UTD. No pain. States he would not have come in if the bleeding had stopped. - History of Current Complaint Chief Complaint: EDLacSutureRecheck Time Seen by Provider: 01/22/17 20:09 Stated Complaint: LEFT THUMB LAC Hx Obtained From: Patient Pain Intensity: 2 - Additional Pertinent History Primary Care Physician: SHANNAN - Allergy/Home Medications Allergies/Adverse Reactions: Allergies Allergy/AdvReac Type Severity Reaction Status Date / Time No Known Allergies Allergy Verified 04/06/13 07:27 PMH/Surg Hx/FS Hx/Imm Hx Previously Healthy: Yes Endocrine/Hematology History: Reports: Hx Anticoagulant Therapy - heparin and eliquis, Hx Diabetes Cardiovascular History: Reports: Hx Angina, Hx Coronary Artery Disease, Hx Hypercholesterolemia, Hx Hypertension Denies: Hx Myocardial Infarction, Hx Valvular Heart Disease Respiratory History: Reports: Hx Sleep Apnea Denies: Hx Asthma, Hx Chronic Obstructive Pulmonary Disease (COPD) GI History: Reports: Other GI Disorders - SHATSKY'S RING History: Reports: Hx Kidney Stones - DISTANT PAST -= NONE NOW Musculoskeletal History: Reports: Hx Arthritis - OSTEOARTHRITIS Sensory History: Reports: Hx Cataracts - BILATERAL, Hx Contacts or Glasses - GLASSES Denies: Hx Hearing Aid Opthamlomology History: Reports: Hx Cataracts - BILATERAL, Hx Contacts or Glasses - GLASSES - Surgical History Surgery Procedure, Year, and Place: LEFT HIP REPLACEMENT Hx Anesthesia Reactions: No Infectious Disease History: No Infectious Disease History: Denies: Traveled Outside the [place] in Last 30 Days - Family History Known Family History: Positive: Hypertension - Social History Occupation: Retired Lives: With Family Alcohol Use: Weekly Alcohol Amount: 4/week Substance Use Type: Reports: None Smoking Status (MU): Former Smoker Type: Cigarettes Amount Used/How Often: 3 ppd Length of Time of Smoking/Using Tobacco: 20 years Have You Smoked in the Last Year: No Review of Systems Positive: no symptoms reported Negative: Arthralgia, Myalgia, Decreased ROM Skin: Other - see HPI Negative: Weakness, Paresthesia, Numbness Psychological: Normal All Other Systems Reviewed And Are Negative: Yes Physical Exam Triage Information Reviewed: Yes Vital Signs On Initial Exam: Initial Vitals Temp Pulse Resp BP Pulse Ox 97.7 F 108 20 141/71 97 01/22/17 18:56 01/22/17 18:56 01/22/17 18:56 01/22/17 18:56 01/22/17 18:56 Vital Signs Reviewed: Yes Appearance: Positive: Well-Appearing, No Pain Distress, Well-Nourished Skin: Positive: Warm Diagnostics - Vital Signs Vital Signs Temp Pulse Resp BP Pulse Ox 01/22/17 18:56 97.7 F 108 20 141/71 97 - Laboratory Lab Statement: Any lab studies that have been ordered have been reviewed, and results considered in the medical decision making process.
== END 2017-01-22 20:40 | disposition home or self-care (01) ==
LOC: ED 18:55
DX: S61.012A Laceration without foreign body of left thumb without damage to nail, initial encounter (principal); W26.0XXA Contact with knife, initial encounter; Y93.G9 Activity, other involving cooking and grilling; Y92.9 Unspecified place or not applicable; Z87.891 Personal history of nicotine dependence
CPT/HCPCS: 99282

== ENCOUNTER 2017-06-04 20:02 | Emergency (ER) | payer MEDICARE, BC ==
[2017-06-04 20:17] VITALS: BP 183/69
== END 2017-06-04 21:35 | disposition left against medical advice (07) ==
LOC: ED 20:02
DX: S61.219A Laceration without foreign body of unspecified finger without damage to nail, initial encounter (principal); X58.XXXA Exposure to other specified factors, initial encounter; Y93.9 Activity, unspecified; Y92.89 Other specified places as the place of occurrence of the external cause; Z53.21 Procedure and treatment not carried out due to patient leaving prior to being seen by health care provider

== ENCOUNTER 2018-01-13 12:42 | Emergency (ER) | payer MEDICARE, BC ==
[2018-01-13] MEDS ORDERED: Ondansetron INJ* 2 MG/ML VIAL IV ONE (13:50)
[2018-01-13 14:15] LABS: ABS Basophils 0 10^3/ul (0-0.2); ABS Eosinophils 0.3 10^3/ul (0-0.6); ABS Lymphocytes 0.6 10^3/ul (1.0-4.8); ABS Monocytes 0.4 10^3/ul (0-0.8); ABS Neutrophils 3.8 10^3/ul (1.5-7.7); ABS Nucleated RBC 0 10^3/ul; Eosinophil % 5.7 % (0-6); Hematocrit 40 % (42-52); Hemoglobin 13.9 g/dl (14.0-18.0); Lymphocyte % 11.3 % (25-47); Mean Corpuscular HGB Conc 35 g/dl (31-36); Mean Corpuscular Hemoglobin 34 pg (27-31); Mean Corpuscular Volume 98 fL (80-94); Mean Platelet Volume 8 um3 (7.4-10.4); Nucleated Red Blood Cells % 0; Platelet Count 171 10^3/ul (150-450); Red Blood Count 4.11 10^6/ul (4.0-5.4); Red Cell Distribution Width 12 % (10.5-15); White Blood Count 5.1 10^3/ul (3.5-10.8)
[2018-01-13 14:30] LABS: EGFR Non-African American 45.4 (>60)
[2018-01-13 14:59] LABS: Urine Appearance Clear; Urine Blood Negative (Negative); Urine Color Straw; Urine Ketones Negative (Negative); Urine Protein Negative (Negative); Urine Specific Gravity 1.018 (1.010-1.030); Urine Urobilinogen Negative (Negative)
[2018-01-13] MEDS ORDERED: Iodixanol* (CONTRAST) 320 MG/ML 100 ML SDV IV ONE (15:52)
--- NOTE | 2018-01-13 16:41 | RAD ---
INDICATION: Low abdominal pain. Paucity of bowel movement. Assess for potential appendicitis. COMPARISON: June 20, 2012 CT. TECHNIQUE: Multidetector CT images were obtained from the lung bases to the ischial tuberosities with 100 mL Visipaque 320 IV and oral contrast. Multiplanar reformation. REPORT: Artifact from RIGHT hip prosthesis limits image quality at the pelvis. Emphysema and mild fibrosis at the lung bases. Calcified granuloma at the LEFT lower lobe. Coronary artery calcifications. Diffuse decreased density of the liver consistent with fatty infiltration. Small calcified liver and spleen granulomas. Unchanged 0.6 cm hypodense lesion at the LEFT hepatic lobe . No suspicious focal hepatic lesions. No CT abnormality of the gallbladder or biliary dilatation. Unremarkable pancreas. Negative for splenomegaly. Negative for CT abnormality of the upper GI or small bowel. Severe colonic diverticulosis with sparing of the RIGHT colon. No evidence for acute diverticulitis. Normal morphology infra cecal appendix. Negative for ascites or free air. Small fat-containing umbilical hernia without inflammatory change. Normal adrenal glands. Symmetric nephrograms and pyelograms. Negative for suspicious focal renal lesions or hydronephrosis. Unremarkable ureters and distended urinary bladder. Coarse calcification at the prostate without change. The RIGHT seminal vesicles is larger than the LEFT unchanged from the 2012 exam. Aortoiliac atherosclerotic plaque. Negative for aneurysm. Physiologic distention of the IVC. 0.7 cm short axis LEFT external iliac lymph node without significant change. Negative for lymphadenopathy. Polyarticular degenerative arthropathy. Evidence for acquired central canal stenosis most prominent at L3-L4 and L4-L5 without significant interval change compared with the 2012 exam. Negative for fracture or suspicious focal osseous lesions. IMPRESSION: 1. Emphysema and mild fibrosis at the lung bases. Coronary artery disease. 2. Fatty infiltration of the liver. 3. Normal appendix documented. Severe colonic diverticulosis without evidence for acute diverticulitis. 4. Negative for obstructive uropathy. 5. No acute abdominal pelvic inflammatory or neoplastic process evident.
[2018-01-13 17:25] VITALS: BP 146/75
--- NOTE | 2018-01-18 13:56 | ED ---
Layla Bertrand Edward, scribed for Shyam Brooks MD on 01/13/18 at 1324 . Abdominal Pain/Male - HPI Summary HPI Summary: 77 y/o male presents to the ED c/o intermittent, severe ABD pain starting last night described as a stabbing pain in the RLQ. Pain rated 0/10 currently. Pain aggravated with sitting up. Denies fever, urinary symptoms. Pt also c/o intermittent R lower back pain starting 2 days ago, that felt like a pulled muscle. Associated sx: chills, loose stools, belching. Sx hernia repair. PMHx DM , kidney stones 2x. Pt did some heavy lifting recently (40 lb cat litter). - History of Current Complaint Chief Complaint: EDAbdPain Stated Complaint: POSSIBLE APPENDICITIS Time Seen by Provider: 01/13/18 13:22 Hx Obtained From: Patient Onset/Duration: Lasting Days, Still Present Timing: Intermittent Pain Intensity: 2 Location: Discrete At: RLQ Character: Other: - stabbing Aggravating Factor(s): Movement - sitting up Alleviating Factor(s): Nothing Associated Signs And Symptoms: Positive: Back Pain - lower R back, Other - chills, loose stools, belching. Negative: Fever, Urinary Symptoms - Allergies/Home Medications Allergies/Adverse Reactions: Allergies Allergy/AdvReac Type Severity Reaction Status Date / Time No Known Allergies Allergy Verified 01/13/18 12:50 Home Medications: Home Medications Empagliflozin [Jardiance] 25 mg PO DAILY 01/13/18 [History Confirmed 01/13/18] Lisinopril TAB* [Prinivil TAB*] 40 mg PO DAILY 01/13/18 [History Confirmed 01/13] Metoprolol Tartrate TAB* [Lopressor TAB*] 25 mg PO DAILY 01/13/18 [History Confirmed 01/13/18] Ticagrelor* [Brilinta*] 90 mg PO BID 01/13/18 [History Confirmed 01/13/18] PMH/Surg Hx/FS Hx/Imm Hx Previously Healthy: No Endocrine/Hematology History: Reports: Hx Anticoagulant Therapy - heparin and eliquis, Hx Diabetes Cardiovascular History: Reports: Hx Angina, Hx Coronary Artery Disease, Hx Hypercholesterolemia, Hx Hypertension Denies: Hx Myocardial Infarction, Hx Valvular Heart Disease Respiratory History: Reports: Hx Sleep Apnea Denies: Hx Asthma, Hx Chronic Obstructive Pulmonary Disease (COPD) GI History: Reports: Other GI Disorders - SHATSKY'S RING History: Reports: Hx Kidney Stones - DISTANT PAST -= NONE NOW Musculoskeletal History: Reports: Hx Arthritis - OSTEOARTHRITIS Sensory History: Reports: Hx Cataracts - BILATERAL, Hx Contacts or Glasses - GLASSES, Hx Macular Degeneration Denies: Hx Hearing Aid Opthamlomology History: Reports: Hx Cataracts - BILATERAL, Hx Contacts or Glasses - GLASSES, Hx Macular Degeneration - Surgical History Surgery Procedure, Year, and Place: LEFT HIP REPLACEMENT Hx Anesthesia Reactions: No Infectious Disease History: No Infectious Disease History: Denies: Traveled Outside the [place] in Last 30 Days - Family History Known Family History: Positive: Hypertension - Social History Alcohol Use: Weekly Alcohol Amount: 4/week Substance Use Type: Reports: None Smoking Status (MU): Former Smoker Type: Cigarettes Amount Used/How Often: 3 ppd Length of Time of Smoking/Using Tobacco: 20 years Have You Smoked in the Last Year: No Review of Systems Positive: Chills. Negative: Fever Negative: Erythema Negative: Sore Throat Negative: Palpitations, Chest Pain Negative: Shortness Of Breath, Cough Positive: Abdominal Pain, Diarrhea - loose, Other - belching. Negative: Vomiting, Nausea Negative: dysuria, hematuria Positive: Myalgia - lower back pain. Negative: Edema Negative: Rash Neurological: Other - no dizziness All Other Systems Reviewed And Are Negative: Yes Physical Exam - Summary Physical Exam Summary: Constitutional: Well-developed, Well-nourished, Alert. (-) Distressed Skin: Warm, Dry HENT: Normocephalic; Atraumatic Eyes: Conjunctiva normal Neck: Musculoskeletal ROM normal neck. (-) JVD, (-) Stridor, (-) Tracheal deviation Cardio: Rhythm regular, rate normal, Heart sounds normal; Intact distal pulses; The pedal pulses are 2+ and symmetric. Radial pulses are 2+ and symmetric. (-) Murmur Pulmonary/Chest wall: Effort normal. (-) Respiratory distress, (-) Wheezes, (-) Rales Abd: Soft, (-) No Appreciable Tenderness, (+) Pain with sitting up (-) Distension, (-) Guarding, (-) Rebound Musculoskeletal: (-) Edema Lymph: (-) Cervical adenopathy Neuro: Alert, Oriented x3 Psych: Mood and affect Normal Triage Information Reviewed: Yes Vital Signs On Initial Exam: Initial Vitals Temp Pulse Resp BP Pulse Ox 97.8 F 84 18 170/73 98 01/13/18 12:44 01/13/18 12:44 01/13/18 12:44 01/13/18 12:44 01/13/18 12:44 Vital Signs Reviewed: Yes Diagnostics - Vital Signs Vital Signs Temp Pulse Resp BP Pulse Ox 01/13/18 12:44 97.8 F 84 18 170/73 98 - Laboratory Lab Results: Lab Results 01/13/18 01/13/18 01/13/18 Range/Units 13:30 13:30 13:30 WBC 5.1 (3.5-10.8) 10^3/ul RBC 4.11 (4.0-5.4) 10^6/ul Hgb 13.9 L (14.0-18.0) g/dl Hct 40 L (42-52) % MCV 98 H (80-94) fL MCH 34 H (27-31) pg MCHC 35 (31-36) g/dl RDW 12 (10.5-15) % Plt Count 171 (150-450) 10^3/ul MPV 8 (7.4-10.4) um3 Neut % (Auto) 74.0 (38-83) % Lymph % (Auto) 11.3 L (25-47) % Gray % (Auto) 8.4 H (0-7) % Eos % (Auto) 5.7 (0-6) % Baso % (Auto) 0.6 (0-2) % Absolute Neuts (auto) 3.8 (1.5-7.7) 10^3/ul Absolute Lymphs (auto) 0.6 L (1.0-4.8) 10^3/ul Absolute Monos (auto) 0.4 (0-0.8) 10^3/ul Absolute Eos (auto) 0.3 (0-0.6) 10^3/ul Absolute Basos (auto) 0 (0-0.2) 10^3/ul Absolute Nucleated RBC 0 10^3/ul Nucleated RBC % 0 Sodium 134 (133-145) mmol/L Potassium 4.6 (3.5-5.0) mmol/L Chloride 103 (101-111) mmol/L Carbon Dioxide 23 (22-32) mmol/L Anion Gap 8 (2-11) mmol/L BUN 28 H (6-24) mg/dL Creatinine 1.50 H (0.67-1.17) mg/dL Est GFR ( Amer) 58.4 (>60) Est GFR (Non-Af Amer) 45.4 (>60) BUN/Creatinine Ratio 18.7 (8-20) Glucose 262 H (70-100) mg/dL POC Glucose (mg/dL) (70-100) mg/dL Lactic Acid 1.5 (0.5-2.0) mmol/L Calcium 9.4 (8.6-10.3) mg/dL Total Bilirubin 0.50 (0.2-1.0) mg/dL AST 24 (13-39) U/L ALT 26 (7-52) U/L Alkaline Phosphatase 85 (34-104) U/L C-Reactive Protein 8.42 H (< 5.00) mg/L Total Protein 7.2 (6.4-8.9) g/dL Albumin 4.2 (3.2-5.2) g/dL Globulin 3.0 (2-4) g/dL Albumin/Globulin Ratio 1.4 (1-3) Lipase 20 (11.0-82.0) U/L Urine Color Urine Appearance Urine pH (5-9) Ur Specific Boy[place] (1.010-1.030) Urine Protein (Negative) Urine Ketones (Negative) Urine Blood (Negative) Urine Nitrate (Negative) Urine Bilirubin (Negative) Urine Urobilinogen (Negative) Ur Leukocyte Esterase (Negative) Urine Glucose (Negative) 01/13/18 01/13/18 Range/Units 14:18 16:04 WBC (3.5-10.8) 10^3/ul RBC (4.0-5.4) 10^6/ul Hgb (14.0-18.0) g/dl Hct (42-52) % MCV (80-94) fL MCH (27-31) pg MCHC (31-36) g/dl RDW (10.5-15) % Plt Count (150-450) 10^3/ul MPV (7.4-10.4) um3 Neut % (Auto) (38-83) % Lymph % (Auto) (25-47) % Gray % (Auto) (0-7) % Eos % (Auto) (0-6) % Baso % (Auto) (0-2) % Absolute Neuts (auto) (1.5-7.7) 10^3/ul Absolute Lymphs (auto) (1.0-4.8) 10^3/ul Absolute Monos (auto) (0-0.8) 10^3/ul Absolute Eos (auto) (0-0.6) 10^3/ul Absolute Basos (auto) (0-0.2) 10^3/ul Absolute Nucleated RBC 10^3/ul Nucleated RBC % Sodium (133-145) mmol/L Potassium (3.5-5.0) mmol/L Chloride (101-111) mmol/L Carbon Dioxide (22-32) mmol/L Anion Gap (2-11) mmol/L BUN (6-24) mg/dL Creatinine (0.67-1.17) mg/dL Est GFR ( Amer) (>60) Est GFR (Non-Af Amer) (>60) BUN/Creatinine Ratio (8-20) Glucose (70-100) mg/dL POC Glucose (mg/dL) 153 H (70-100) mg/dL Lactic Acid (0.5-2.0) mmol/L Calcium (8.6-10.3) mg/dL Total Bilirubin (0.2-1.0) mg/dL AST (13-39) U/L ALT (7-52) U/L Alkaline Phosphatase (34-104) U/L C-Reactive Protein (< 5.00) mg/L Total Protein (6.4-8.9) g/dL Albumin (3.2-5.2) g/dL Globulin (2-4) g/dL Albumin/Globulin Ratio (1-3) Lipase (11.0-82.0) U/L Urine Color Straw Urine Appearance Clear Urine pH 5.0 (5-9) Ur Specific Boy[place] 1.018 (1.010-1.030) Urine Protein Negative (Negative) Urine Ketones Negative (Negative) Urine Blood Negative (Negative) Urine Nitrate Negative (Negative) Urine Bilirubin Negative (Negative) Urine Urobilinogen Negative (Negative) Ur Leukocyte Esterase Negative (Negative) Urine Glucose 3+(>=500 mg/dl) A (Negative) Result Diagrams: 01/13/18 13:30 01/13/18 13:30 Lab Statement: Any lab studies that have been ordered have been reviewed, and results considered in the medical decision making process. - CT ABD/PEL CT CT Interpretation: Positive (See Comments) - 1. Emphysema and mild fibrosis at the lung bases. Coronary artery disease. 2. Fatty infiltration of the liver. 3. Normal appendix documented. Severe colonic diverticulosis without evidence for acute diverticulitis. 4. Negative for obstructive uropathy. 5. No acute abdominal pelvic inflammatory or neoplastic process evident. CT Interpretation Completed By: Radiologist - ED PHYSICIAN REVIEWS AND AGREES Re-Evaluation - Re-Evaluation 1 Re-Evaluation Time: 17:00 Comment: Reassess pt. Pt has mild RLQ tenderness. Discuss plan to d/c Abdominal Pain Fem Course/Dx - Course Assessment/Plan: 77 y/o male presents to the ED c/o intermittent, severe ABD pain starting last night described as a stabbing pain in the RLQ. Pain rated 0/ 10 currently. Pain aggravated with sitting up. Denies fever, urinary symptoms. Pt also c/o intermittent R lower back pain starting 2 days ago, that felt like a pulled muscle. Associated sx: chills, loose stools, belching. Sx hernia repair. PMHx DM, kidney stones 2x. Pt did some heavy lifting recently (40 lb cat litter). ABD/PEL CT SHOWS 1. Emphysema and mild fibrosis at the lung bases. Coronary artery disease. 2. Fatty infiltration of the liver. 3. Normal appendix documented. Severe colonic diverticulosis without evidence for acute diverticulitis. 4. Negative for obstructive uropathy. 5. No acute abdominal pelvic inflammatory or neoplastic process evident. No kidney stones or appendicitis identified. Exam unremarkable. No palpable hernias. Pt will be d/c home. Pt is agreeable to plan. During re-eval, I discussed with the pt the possibility of early appendicitis and ecnouraged the pt to return for worsening symptoms. Symptoms are greatest when the pt sits up. I believe this is some sort of muscular pathology. - Diagnoses Provider Diagnoses: Abdominal pain, suspect ABD muscle strain Discharge - Sign-Out/Discharge Documenting (check all that apply): Discharge - discharge - Discharge Plan Condition: Stable Disposition: HOME Patient Education Materials: Abdominal Pain (ED) Referrals: Law,Ron, MD [Primary Care Provider] - 2 Days (PLEASE F/U IN 1-2 DAYS) Additional Instructions: PLEASE RETURN TO THE ED FOR CHANGING OR WORSENING SYMPTOMS - Billing Disposition and Condition Condition: STABLE Disposition: HOME The documentation as recorded by the Layla mares Edward accurately reflects the service I personally performed and the decisions made by Cecilia garrido Jerry, MD.
== END 2018-01-13 17:13 | disposition home or self-care (01) ==
LOC: ED 12:42
DX: M54.5 Low back pain (principal); R10.9 Unspecified abdominal pain; Z87.891 Personal history of nicotine dependence
CPT/HCPCS: 36415; 74177; 80053; 81003; 83605; 83690; 85025; 86140; 96374; 99284; J2405; Q9967

== ENCOUNTER → 2019-03-15 20:41 | Emergency (ER) | payer MEDICARE, BC ==
--- NOTE | 2019-03-15 21:04 | ED ---
Upper Extremity Pain - HPI Summary HPI Summary: This patient is a 78 year old male presenting to [facility] with a chief complaint of right wrist pain 30 minutes ago. He says he heard his wrist snap when he was relaxing on his porch. The patient states he had surgery on the wrist 45 years ago and says the wrist has limited ROM at baseline. He rates his pain 6/10 in severity. The patient states he had similar problems 2-3 months ago when he first noted minor swelling in the extremity but did not experience pain. He says this swelling has improved since 2-3 months ago but is still present. He states it now hurts to bend the wrist following the snap sound he heard. - History of Current Complaint Chief Complaint: EDExtremityUpper Stated Complaint: "RT WRIST PAIN PER PT" Hx Obtained From: Patient Onset/Duration: Started Minutes Ago Timing: Constant Severity Initially: Mild Severity Currently: Mild Pain Location: Wrist Associated Signs & Symptoms: Positive: Swelling - Allergies/Home Medications Allergies/Adverse Reactions: Allergies Allergy/AdvReac Type Severity Reaction Status Date / Time No Known Allergies Allergy Verified 03/15/19 21:21 PMH/Surg Hx/FS Hx/Imm Hx Endocrine/Hematology History: Reports: Hx Anticoagulant Therapy - heparin and eliquis, Hx Diabetes Cardiovascular History: Reports: Hx Coronary Artery Disease, Hx Hypertension Denies: Hx Angina, Hx Hypercholesterolemia, Hx Myocardial Infarction, Hx Valvular Heart Disease Respiratory History: Reports: Hx Sleep Apnea Denies: Hx Asthma, Hx Chronic Obstructive Pulmonary Disease (COPD) GI History: Reports: Other GI Disorders - SHATSKY'S RING History: Reports: Hx Kidney Stones - DISTANT PAST -= NONE NOW Musculoskeletal History: Reports: Hx Arthritis - OSTEOARTHRITIS Sensory History: Reports: Hx Cataracts - BILATERAL, Hx Contacts or Glasses - GLASSES, Hx Macular Degeneration Denies: Hx Hearing Aid Opthamlomology History: Reports: Hx Cataracts - BILATERAL, Hx Contacts or Glasses - GLASSES, Hx Macular Degeneration - Surgical History Surgery Procedure, Year, and Place: LEFT HIP REPLACEMENT Hx Anesthesia Reactions: No Infectious Disease History: No Infectious Disease History: Denies: Traveled Outside the [place] in Last 30 Days - Family History Known Family History: Positive: Hypertension - Social History Alcohol Use: Weekly Alcohol Amount: 4/week Substance Use Type: Reports: None Smoking Status (MU): Former Smoker Type: Cigarettes Amount Used/How Often: 3 ppd Length of Time of Smoking/Using Tobacco: 20-30 years Have You Smoked in the Last Year: No Review of Systems Negative: Fever Positive: Edema, Other - Extremity pain All Other Systems Reviewed And Are Negative: Yes Physical Exam - Summary Physical Exam Summary: VITAL SIGNS: Reviewed. GENERAL: Patient is a well-developed and nourished MALE who is lying comfortable in the stretcher. Patient is not in any acute respiratory distress. HEAD AND FACE: No signs of trauma. No ecchymosis, hematomas or skull depressions. No sinus tenderness. EYES: PERRLA, EOMI x 2, No injected conjunctiva, no nystagmus. EARS: Hearing grossly intact. Ear canals and tympanic membranes are within normal limits. MOUTH: Oropharynx within normal limits. NECK: Supple, trachea is midline, no adenopathy, no JVD, no carotid bruit, no c- spine tenderness, neck with full ROM CHEST: Symmetric, no tenderness at palpation LUNGS: Clear to auscultation bilaterally. No wheezing or crackles. CVS: Regular rate and rhythm, S1 and S2 present, no murmurs or gallops appreciated. ABDOMEN: Soft, non-tender. No signs of distention. No rebound no guarding, and no masses palpated. Bowel sounds are normal. EXTREMITIES: FROM in all major joints, no cyanosis or clubbing. Tenderness over the volar right wrist with minor swelling. Tenderness when rotating the wrist. Neurovascular exam in tact. NEURO: Alert and oriented x 3. No acute neurological deficits. Speech is normal and follows commands. SKIN: Dry and warm Triage Information Reviewed: Yes Vital Signs On Initial Exam: Initial Vitals Temp Pulse Resp BP Pulse Ox 98.7 F 87 16 174/68 97 03/15/19 20:43 03/15/19 20:43 03/15/19 20:43 03/15/19 20:43 03/15/19 20:43 Vital Signs Reviewed: Yes Procedures - Splinting Right Upper Extremity Location: Right wrist Pre-Made Type: velcro Pre-Proc Neuro Vasc Exam: normal Post-Proc Neuro Vasc Exam: normal Diagnostics - Vital Signs Vital Signs Temp Pulse Resp BP Pulse Ox 03/15/19 20:43 98.7 F 87 16 174/68 97 - Laboratory Lab Statement: Any lab studies that have been ordered have been reviewed, and results considered in the medical decision making process. - Radiology Wrist XR Radiology Interpretation Completed By: ED Physician R Wrist XR Radiology Interpretation Completed By: ED Physician Summary of Radiographic Findings: Osteoarthritis, no fracture. Pending official radiologist report. Course/Dx - Course Course Of Treatment: This patient is a 78 year old male presenting to [facility] with a chief complaint of right wrist pain 30 minutes ago. Right wrist XR reveals osteoarthritis, no fracture. The patient will be splinted with a cockup splint by the Emergency Room Net Lead [employer] and sent home with a Dx of osteoarthritis. He will follow up with Dr. Tuttle tomorrow. This plan was dissussed with the patient and he was agreeable with this plan. - Diagnoses Provider Diagnoses: Osteoarthritis Discharge - Sign-Out/Discharge Documenting (check all that apply): Patient Departure - Discharge Patient Received Moderate/Deep Sedation with Procedure: No - Discharge Plan Condition: Stable Disposition: HOME Patient Education Materials: Osteoarthritis (ED) Referrals: Ron Barajas MD [Primary Care Provider] - Additional Instructions: Return to ED with any new or worsening symptoms. - Attestation Statements Document Initiated by Scribe: Yes Documenting Scribe: Jesus Ng Provider For Whom Libiaibe is Documenting (Include Credential): Brad Medina MD Scribe Attestation: Jesus Bertrand, scribed for Brad Medina MD on 03/15/19 at 2151. Status of Scribe Document: Ready
[2019-03-15 22:02] VITALS: BP 168/64
== END | disposition home or self-care (01) ==
LOC: ED 20:41
DX: M19.031 Primary osteoarthritis, right wrist (principal); Z79.01 Long term (current) use of anticoagulants; E11.9 Type 2 diabetes mellitus without complications; I25.10 Atherosclerotic heart disease of native coronary artery without angina pectoris; I10 Essential (primary) hypertension; G47.30 Sleep apnea, unspecified; Z96.642 Presence of left artificial hip joint; Z87.891 Personal history of nicotine dependence
CPT/HCPCS: 99282

== ENCOUNTER 2019-09-21 10:34 | Observation (INO) | payer MEDICARE, BC ==
--- NOTE | 2019-09-21 10:53 | ED ---
HPI Chest Pain - HPI Summary HPI Summary: This pt is a 79 y/o male presenting to [facility] c/o worsening chest pain since 1 week ago. Pt reports he has hx schatzki's ring and has not had this problem lately. He notes he also has GERD for which he takes medications. He states his hemoglobin a1c was elevated and his PCP placed the pt back of Metformin 1 week ago. Pt reports he began to take Metformin 1 week ago and immediately felt the chest pain. He took 2 days of Metformin and discontinued it due to pain and called his PCP. Pt reports the reason he went off Metformin a few years ago was due to acid reflux. Pt reports his pain worsened 2 days ago but was "terrible" yesterday. He took Pepto Bismol and 5 or 6 tabs of Tums without relief last night. Pt notes associates symptoms of chills, extreme belching, nausea, dry heaves, esophageal pain. He reports 1 episode of emesis this morning. He states he had a normal bowel movement today CASE CHECKER. Pt describes his chest pain as a "burning ball of fire" directly behind his sternum. He currently rates his chest pain 2/10 in severity. Denies lightheadedness, dizziness, SOB. PMHx includes HTN, DM, hyperlipidemia, CAD s/p cardiac stents. Denies hx of IA. Pt is a former smoker, quit 40 years ago. - History of Current Complaint Chief Complaint: EDChestPainROMI Time Seen by Provider: 09/21/19 10:46 Hx Obtained From: Patient Onset/Duration: Started Days Ago, Still Present Timing: Lasting Days Current Severity: Mild Pain Intensity: 2 Pain Scale Used: 0-10 Numeric Chest Pain Location: Mid Sternal Chest Pain Radiates: No Character: Burning Aggravating Factor(s): Nothing Alleviating Factor(s): Nothing Associated Signs and Symptoms: Positive: Chest Pain, Chills, Nausea, Vomiting, Other: - POSITIVE: belching, dry heaves, esophageal pain. Negative: Dizziness, Shortness of Breath, Fever, Lightheadedness - Additional Pertinent History Primary Care Physician: [id number] - Allergy/Home Medications Allergies/Adverse Reactions: Allergies Allergy/AdvReac Type Severity Reaction Status Date / Time No Known Allergies Allergy Verified 09/21/19 10:42 PMH/Surg Hx/FS Hx/Imm Hx Endocrine/Hematology History: Reports: Hx Anticoagulant Therapy - heparin and eliquis, Hx Diabetes Cardiovascular History: Reports: Hx Coronary Artery Disease - Stent, Hx Hypercholesterolemia, Hx Hypertension Denies: Hx Myocardial Infarction, Hx Pacemaker/ICD, Hx Valvular Heart Disease Comment Only: Hx Angina - in past Respiratory History: Reports: Hx Sleep Apnea Denies: Hx Asthma, Hx Chronic Obstructive Pulmonary Disease (COPD) GI History: Reports: Other GI Disorders - SHATSKY'S RING History: Reports: Hx Kidney Stones - DISTANT PAST -= NONE NOW Denies: Hx Renal Disease Musculoskeletal History: Reports: Hx Arthritis - OSTEOARTHRITIS Sensory History: Reports: Hx Cataracts - BILATERAL, Hx Contacts or Glasses - GLASSES, Hx Macular Degeneration, Hx Hearing Aid Opthamlomology History: Reports: Hx Cataracts - BILATERAL, Hx Contacts or Glasses - GLASSES, Hx Macular Degeneration Psychiatric History: Denies: Hx Panic Disorder - Surgical History Surgical History: Yes Surgery Procedure, Year, and Place: RIGHT HIP REPLACEMENT. LEFT EYE RETINAL DETACHMENT-NO TACK-OP REPORT FILED. CARDIAC CATHERIZATIONS-WITH HEART STENT. TONSILS 194 Hx Anesthesia Reactions: No Infectious Disease History: No Infectious Disease History: Denies: Traveled Outside the [place] in Last 30 Days - Family History Known Family History: Positive: Hypertension - Social History Alcohol Use: Weekly Alcohol Amount: 4/week Substance Use Type: Reports: None Hx Tobacco Use: Yes - quit 40 years ago Smoking Status (MU): Former Smoker Type: Cigarettes Amount Used/How Often: 3 ppd Length of Time of Smoking/Using Tobacco: 20-30 years Have You Smoked in the Last Year: No Review of Systems Positive: Chills. Negative: Fever Positive: Chest Pain Negative: Shortness Of Breath Gastrointestinal: Other - POSITIVE: belching Positive: Vomiting, Nausea Neurological: Other - NEGATIVE: lightheadedness All Other Systems Reviewed And Are Negative: Yes Physical Exam - Summary Physical Exam Summary: GENERAL: Patient is a well-developed and nourished male who is lying comfortable in the stretcher. Patient is not in any acute respiratory distress. HEAD AND FACE: No signs of trauma. No ecchymosis, hematomas or skull depressions. No sinus tenderness. EYES: PERRLA, EOMI x 2, No injected conjunctiva, no nystagmus. EARS: Hearing grossly intact. Ear canals and tympanic membranes are within normal limits. MOUTH: Oropharynx within normal limits. NECK: Supple, trachea is midline, no adenopathy, no JVD, no carotid bruit, no c- spine tenderness, neck with full ROM. CHEST: Symmetric, no tenderness at palpation LUNGS: Clear to auscultation bilaterally. No wheezing or crackles. CVS: Regular rate and rhythm, S1 and S2 present, no murmurs or gallops appreciated. ABDOMEN: Soft, non-tender. No signs of distention. No rebound no guarding, and no masses palpated. Bowel sounds are normal. EXTREMITIES: FROM in all major joints, no edema, no cyanosis or clubbing. NEURO: Alert and oriented x 3. No acute neurological deficits. Speech is normal and follows commands. SKIN: Dry and warm Triage Information Reviewed: Yes Vital Signs On Initial Exam: Initial Vitals Temp Pulse Resp BP Pulse Ox 97.4 F 93 16 202/78 99 09/21/19 10:34 09/21/19 10:34 09/21/19 10:34 09/21/19 10:34 09/21/19 10:34 Vital Signs Reviewed: Yes Procedures - Sedation Patient Received Moderate/Deep Sedation with Procedure: No Diagnostics - Vital Signs Vital Signs Temp Pulse Resp BP Pulse Ox 09/21/19 10:34 97.4 F 93 16 202/78 99 - Laboratory Result Diagrams: 09/21/19 11:16 09/22/19 04:20 Lab Statement: Any lab studies that have been ordered have been reviewed, and results considered in the medical decision making process. - Radiology Chest XR Radiology Interpretation Completed By: Radiologist Summary of Radiographic Findings: IMPRESSION: No evidence for acute intrathoracic disease. Dr. Suárez has reviewed this report. - EKG 10:36 Cardiac Rate: NL - at 94 bpm EKG Rhythm: Sinus Rhythm Summary of EKG Findings: EKG at 1036 shows normal sinus rhythm at a rate of [address] elevations. Q waves in leads III and aVF. Normal axis. 13:02 Cardiac Rate: NL - at 76 bpm EKG Rhythm: Sinus Rhythm EKG Comparison: No Significant Change - similar to prior EKG at 10:36 today Summary of EKG Findings: EKG at 1302 shows normal sinus rhythm at a rate of [address] elevations. Similar to prior. Chest Pain Course/Dx - Course Assessment/Plan: This patient is a 79-year-old male with a past medical history significant for diabetes, hypertension, dyslipidemia, coronary artery disease status post stents. He presents to the emergency room with a chief complaint of having chest pain since last night. Blood work results without any significant abnormality except for BUN at 36, creatinine 1.66, glucose 199 and calcium 10.5. Urinalysis is negative for UTI. Troponin is 0.01. Chest x-ray impression: No acute pathology. EKG shows a normal sinus rhythm without ST elevations. In the ED course the patient developed more pain therefore a second EKG was obatined which is also found to be without any significant abnormality. The patient was given a GI cocktail without any improvement of symptoms. The heart score for this patient is equal to 4. Therefore, I discussed the case with Dr. Partida from the hospitalist services who accepted the patient for admission. - Chest Pain Differential Diagnosis/HQI/PQRI: Acute IA, ACS, Angina, CHF, Chest Wall, GI Disease, Lower Respiratory Infection, Pulmonary Edema - Diagnoses Provider Diagnoses: Chest pain - Provider Notifications Discussed Care Of Patient With: Meeta Partida - hospitalist Time Discussed With Above Provider: 13:55 Instructed by Provider To: Admit As Inpatient Discharge ED - Sign-Out/Discharge Documenting (check all that apply): Patient Departure - Admit to [facility] - Discharge Plan Condition: Stable Disposition: ADMITTED TO [facility] - Billing Disposition and Condition Condition: STABLE Disposition: Admitted to [facility] - Attestation Statements Document Initiated by Marinoe: Yes Documenting Scribe: Meeta Mao Provider For Whom Scribe is Documenting (Include Credential): Kasi Suárez MD Scribe Attestation: Meeta Bertrand scribed for Kasi Suárez MD on 09/22/19 at 0812. Scribe Documentation Reviewed: Yes Provider Attestation: The documentation as recorded by the Meeta mares accurately reflects the service I personally performed and the decisions made by me, Kasi Suárez MD Status of Scribe Document: Viewed
[2019-09-21] MEDS ORDERED: Aspirin 81 mg CHEW TAB* 81 MG TAB.CHEW PO ONE (10:55)
--- OUTSIDE RECORDS SUMMARY | 2019-09-21 11:06 | XMS REPORT | Continuity of Care Document ---
:1940 External Reference #:[id number] Author Name Yogesh Hitchcock M.D. (transmitted by agent of provider Pearl Moore) Address [address] [place] [id number] Care Team Providers Name Role Phone Ron Barajas MD - Endocrinology, Care Team Information Electronic Equipment Repairer Diabetes & Metabolism Jackie Dailey M.D. - Care Team Information Electronic Equipment Repairer [phone] Cardiovascular Disease Problems Active Problems Provider Date Coronary arteriosclerosis Yogesh Hitchcock M.D. Onset: 12/04/2011 Electrocardiogram abnormal Yogesh Hitchcock M.D. Onset: 12/04/2011 Dyspnea Yogesh Hitchcock M.D. Onset: 12/04/2011 Patient post percutaneous transluminal Yogesh Hitchcock M.D. Onset: 04/2012 coronary angioplasty Benign essential hypertension Yogesh Hitchcock M.D. Onset: 12/04/2011 Sinus node dysfunction Manuela Alfaro, N.PCody Onset: 01/02/2012 Edema Manuela Alfaro NCodyPCody Onset: 01/02/2012 Heart murmur Yogesh Hitchcock M.D. Onset: 07/17/2012 Chronic ischemic heart disease Yogesh Hitchcock M.D. Onset: 03/12/2014 Obstructive sleep apnea syndrome Josselyn Lundberg MD Onset: 04/28/2015 Obesity Josselyn Lundberg MD Onset: 04/28/2015 Social History Type Date Description Comments Sex Unknown ETOH Use Occasionally consumes alcohol Recreational Drug Use Denies Drug Use Tobacco Use Start: Unknown End: Patient is a former smoker Quit in 1979 Unknown Tobacco Use Start: Unknown End: Electronic cigarette Quit 1979 Unknown Smoking Status Reviewed: 07/29/19 Electronic cigarette Quit 1979 Exercise Type/Frequency Exercises sporadically Allergies, Adverse Reactions, Alerts Description No Known Drug Allergies Medications Active Medications SIG Qnty Indications Ordering Provider Date Terazosin HCL 1 po qd 90caps Unknown 5mg Capsules Amoxicillin 4 capsules 1 hr 40caps Unknown 500mg prior to dental Capsules work Lisinopril 1 po qd 90tabs Unknown 40mg Tablets Glipizide XL 1 tablet bid 90tabs Unknown 10mg Tablets ER 24HR Aspirin 1 by mouth every Unknown 81mg Tablets day Finasteride 1 by mouth every Unknown 5mg Tablets day Jardiance 1 by mouth daily Unknown 25mg Tablets Magnesium 1 tablet by mouth Unknown 500mg at bedtime Pantoprazole Sodium 1 by mouth every Unknown day 20mg Tablets DR Medications Administered in Office Medication SIG Qnty Indications Ordering Provider Date Inj, Regadenoson, 0.1 MG Shelton Garcia M.D., 07/22/2015 Injection FACC, FASNC Technetium TC 99M Shelton Garcia M.D., 07/22/2015 Tetrofosmin, Per Unit Dose FACC, FASNC Up To 40 Millicuries Injection Technetium TC 99M TORY Singh 07/22/2015 Tetrofosmin, Per Unit Dose Up To 40 Millicuries Injection Immunizations Description No Information Available Vital Signs Date Vital Result Comment 07/29/2019 3:09pm Height 70 inches 5'10" Weight 198.00 lb with shoes Heart Rate 82 /min BP Systolic Sitting 130 mmHg Lue (regular cuff) BP Diastolic Sitting 78 mmHg Lue (regular cuff) BP Systolic Standing 132 mmHg BP Diastolic Standing 84 mmHg BMI (Body Mass Index) 28.4 kg/m2 Ejection Fraction 55-60% Echocardiogram 06/25/19 03/16/2019 2:30pm Height 70 inches 5'10" Weight 193.00 lb Heart Rate 87 /min BP Systolic 138 mmHg BP Diastolic 72 mmHg Respiratory Rate 16 /min Pain Level 7 BMI (Body Mass Index) 27.7 kg/m2 Results Description No Information Available Procedures Date Code Description Status 07/29/2019 03507 EKG Tracing & Interpretation Completed 06/25/2019 57475 ECHO Transthoracic, Real-Time 2D With Doppler And Completed Color Flow 06/25/2019 37099 ECHO Transthoracic, Real-Time 2D With Doppler And Completed Color Flow 06/17/2019 50178 Treadmill Interp/Report Only Completed 06/17/2019 17975 Stress Test Supervsn W/Out I/R Completed 03/28/2017 [id number] Diabetic Retinal Eye Exam Completed Medical Devices Description No Information Available Encounters Type Date Location Provider Dx Diagnosis Office Visit 03/16/2019 [facility] Phyllis Tuttle, R22.31 Localized 2:00p at [place] [facility] swelling, mass and lump, right upper limb Assessments Date Code Description Provider 07/29/2019 I77.819 Aortic ectasia, unspecified site Yogesh Hitchcock M.D. 07/29/2019 I25.10 Atherosclerotic heart disease of Yogesh Hitchcock M.D. [place] coronary artery without angina pectoris 07/29/2019 Z98.61 Coronary angioplasty status Yogesh Hitchcock M.D. 07/29/2019 I35.0 Nonrheumatic aortic (valve) stenosis Yogesh Hitchcock M.D. 07/29/2019 I34.2 Nonrheumatic mitral (valve) stenosis Yogesh Hitchcock M.D. 07/29/2019 E78.5 Hyperlipidemia, unspecified Yogesh Hitchcock M.D. 06/25/2019 I77.819 Aortic ectasia, unspecified site [facility] 06/25/2019 I25.10 Atherosclerotic heart disease of Yogesh Hitchcock M.D. [place] coronary artery without angina pectoris 06/25/2019 I25.10 Atherosclerotic heart disease of [facility] [place] coronary artery with 06/25/2019 Z98.61 Coronary angioplasty status [facility] 06/25/2019 R00.1 Bradycardia, unspecified [facility] 06/25/2019 I35.0 Nonrheumatic aortic (valve) stenosis [facility] 06/17/2019 I25.10 Atherosclerotic heart disease of Yogesh Hitchcock M.D. [place] coronary artery without angina pectoris 03/16/2019 R22.31 Localized swelling, mass and lump, Phyllis Tuttle M.D. right upper limb Plan of Treatment 07/29/2019 - Yogesh Hitchcock M.D.I77.819 Aortic ectasia, unspecified siteNew Orders:Echocardiogram, Ordered: 07/29/19I25.10 Atherosclerotic heart disease of [place] coronary artery without angina pectorisFollow up:10 months ovZ98.61 Coronary angioplasty znflrdM44.0 Nonrheumatic aortic (valve) drckfxbfZ22.2 Nonrheumatic mitral (valve) hxgrrtorD33.5 Hyperlipidemia, unspecified Functional Status Description No Information Available Mental Status Description No Information Available Referrals Description No Information Available
[2019-09-21 11:30] LABS: ABS Lymphocytes 0.5 10^3/ul (1.0-4.8); ABS Monocytes 0.5 10^3/ul (0-0.8); Eosinophil % 0.2 %; Hematocrit 47 % (42-52); Lymphocyte % 5.2 %; Mean Corpuscular HGB Conc 34 g/dL (31-36); Mean Corpuscular Hemoglobin 34 pg (27-31); Mean Corpuscular Volume 99 fL (80-94); Mean Platelet Volume 8.2 fL (7.4-10.4); Platelet Count 192 10^3/uL (150-450); Red Blood Count 4.73 10^6 /uL (4.18-5.48); Red Cell Distribution Width 13 % (10-15)
[2019-09-21 11:39] LABS: INR 1.01 (0.82-1.09)
[2019-09-21 11:46] LABS: Urine Appearance Clear; Urine Bilirubin Negative (Negative); Urine Blood Negative (Negative); Urine Color Yellow; Urine Glucose 3+(>=500 mg/dL) (Negative); Urine Ketones Trace (Negative); Urine Nitrite Negative (Negative); Urine Protein 2+(100 mg/dL) (Negative); Urine Specific Gravity 1.026 (1.010-1.030); Urine Urobilinogen Negative (Negative)
[2019-09-21 11:48] LABS: Albumin 4.5 g/dL (3.2-5.2); Albumin/Globulin Ratio 1.4 (1-3); BUN/Creatinine Ratio 21.7 (8-20); Calcium 10.5 mg/dL (8.6-10.3); EGFR African American 48.6 (>60); EGFR Non-African American 40.2 (>60); Globulin 3.3 g/dL (2-4); Magnesium 2.1 mg/dL (1.9-2.7); Potassium 4.3 mmol/L (3.5-5.0); Total Bilirubin 0.7 mg/dL (0.2-1.0); Total Protein 7.8 g/dL (6.4-8.9)
[2019-09-21 11:49] LABS: Urine Bacteria Absent (Absent); Urine Red Blood Cell Absent (Absent); Urine White Blood Cell Absent (Absent)
[2019-09-21 11:51] LABS: Troponin I 0.01 ng/mL (<0.03)
[2019-09-21 11:53] LABS: CKMB ng/mL 6.2 ng/mL (0.6-6.3)
[2019-09-21 12:16] LABS: TSH (Thyroid Stimulating Horm) 0.62 mcIU/mL (0.34-5.60)
[2019-09-21] MEDS ORDERED: NS 0.9% 1000 ML** 1,000 ML IV ONE (12:36)
[2019-09-21] MEDS ORDERED: Al Hydrox/Mg Hydrox/Simet LIQ* 30 ML UDC PO ONE (12:39)
[2019-09-21] MEDS ORDERED: Lidocaine 2% VISCOUS* 15 ML UDC PO ONE (12:39)
[2019-09-21] MEDS ORDERED: Ondansetron INJ* 2 MG/ML VIAL IV PRN (15:22)
[2019-09-21] MEDS ORDERED: Dextrose 50% VIAL 50 ml IV PUSH PRN (15:28)
--- NOTE | 2019-09-21 16:56 | HP ---
CC: Dr. Ron Barajas * HISTORY AND PHYSICAL: DATE OF ADMISSION: 09/21/19 PRIMARY CARE PROVIDER: Dr. Ron Barajas. ATTENDING PHYSICIAN: Dr. Meeta Partida * (dictated by TORY Adhikari). CHIEF COMPLAINT: Midsternal chest pain. HISTORY OF PRESENT ILLNESS: Mr. Mata is a 79-year-old male with past medical history of coronary artery disease, status post stenting; hypertension; hyperlipidemia; diabetes mellitus; history of Schatzki ring, who presented to the ER today with complaints of midsternal chest pain that he describes as "a hot ball of fire in the back of the sternum." He notes that this started approximately 8 days ago when he restarted metformin medication at the suggestion of his primary care provider, Dr. Barajas. He recalls that he stopped taking this medication approximately 5 years ago due to it causing dyspepsia. He took metformin for 2 days and immediately developed dyspepsia and chest pain. He discontinued the medication after 2 days, but continued to have pain. He describes the pain as burning. This typically occurs with evening meals and resolves overnight. He wakes without pain, but the pain returns by dinnertime. He has associated belching. He also reports retching overnight starting last night, nausea, vomiting x1 this morning which prompted him to seek medical attention. He notes that he had chills overnight. He has tried Pepto and Tums without relief. He takes PPI daily. He denies dysphagia, hematemesis, melena, hematochezia. He denies pain with swallowing. He complains of "esophageal pain." The patient was noted to have a HEART score of 4. He had a stress test in May 2019, which was within normal limits. Nuclear portion revealing no reversible or fixed myocardial perfusion defects. He denies shortness of breath, associated jaw or arm pain, diaphoresis. He does have a history of cardiac stenting 5 to 10 years ago. He reports that his epigastric pain is resolved now. PAST MEDICAL HISTORY: 1. Coronary artery disease, status post stenting 5 to 10 years ago. 2. Hypertension. 3. Hyperlipidemia. 4. Diabetes mellitus, [id number]. 5. History of obstructive sleep apnea, resolved with weight loss. 6. GERD. 7. Schatzki ring, last dilated 6 to 7 years ago. 8. BPH. PAST SURGICAL HISTORY: Right total hip arthroplasty, left eye retinal detachment, cardiac catheterization with stenting, tonsillectomy. HOME MEDICATIONS: 1. Aspirin 81 mg p.o. daily. 2. Empagliflozin 25 mg p.o. daily. 3. Finasteride 5 mg p.o. daily. 4. Glipizide 10 mg p.o. b.i.d. 5. Lisinopril 40 mg p.o. daily. 6. Magnesium oxide 250 mg p.o. daily. 7. Pantoprazole 40 mg p.o. daily. 8. Terazosin 5 mg p.o. daily. DRUG ALLERGIES: No known drug allergies. FAMILY HISTORY: Father had heart disease and at the age of approximately 55, also had diabetes mellitus. Brother with a history of diabetes mellitus. Mother had colon cancer. Maternal grandmother had cancer and the patient is unsure what kind. No family history of CVA. SOCIAL HISTORY: The patient quit smoking approximately 40 years ago. Prior to that, he smoked for 25 years, 1 to 1-1/2 packs per day. He drinks alcohol approximately 10 drinks per week. He is retired. He was in the [employer] for approximately 3 years. 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 He lives with his and 2 cats. In the event that he is unable to make his own medical decisions, he has appointed his , Vikki Mata, to be his surrogate decision maker. REVIEW OF SYSTEMS: A 14-point review of systems has been performed and all the pertinent positives and negatives are in the HPI. All other systems are negative. PHYSICAL EXAMINATION GENERAL: Mr. Mata is a well-developed, well-nourished, overweight, older white male, who is sitting up in bed. He appears to be in no acute distress. He is pleasant and cooperative. VITAL SIGNS: Temperature 97.4 temporal, heart rate 61, respiratory rate 23, oxygen saturation 94% on room air, blood pressure 168/78. HEENT: PERRL. EOMI. Nonicteric sclerae. Hearing is grossly intact. Oral mucous membranes are moist. There are no lesions. The pharynx is clear. The tongue is at midline. Palate elevates symmetrically. PULMONARY: Symmetrical chest expansion without use of accessory muscles. Clear to auscultation bilaterally without rhonchi, wheezes, or rales. No digital clubbing or cyanosis. CARDIOVASCULAR: Regular rate and rhythm with S1, S2 present without murmurs, rubs, clicks, or gallops. There is no JVD. No peripheral edema. Chest wall nontender to palpation. ABDOMEN: Bowel sounds in all quadrants. Soft. Tenderness to palpation in the epigastric area. Otherwise, nontender to palpation. MUSCULOSKELETAL: Full range of motion without pain or deformities. Equal strength bilaterally in the upper and lower extremities. NEURO: The patient is awake. He is alert and oriented x3 with cranial nerves grossly intact. Muscle strength 5/5 bilaterally in the upper and lower extremities, muscle strength is equal. DIAGNOSTIC STUDIES/LAB DATA: CBC without gross abnormality. Creatinine 1.66, BUN 36, glucose 199. Troponin 0.01, 0.01. TSH 0.62. Magnesium 2.1. Chest x-ray negative for acute intrathoracic disease. EKG #1: Rate 94 with Q waves noted in II, III, aVF. No ST changes. EKG #2: Rate 76, normal sinus rhythm, Q waves in III and aVF. No ST changes. ASSESSMENT AND PLAN: Mr. Mata is a 79-year-old male with a past medical history of diabetes mellitus type 2, [id number]; coronary artery disease, requiring stenting; hypertension; hyperlipidemia; Schatzki ring, who presented to the ER today with complaints of approximately 1 week of midsternal chest pain. He will be admitted for: 1. Chest pain. The patient presents with midsternal chest pain, belching, nausea, retching, vomiting x1. EKG shows no ST changes x2. Troponin negative x2. We will pursue acute coronary syndrome workup on this patient. We will continue to trend troponins x3. EKG has been ordered for the morning. A stress test will also be performed in the morning. Lipids and hemoglobin A1c will be ordered. We will also pursue GI consult for recommendations for the patient's history of Schatzki ring that required dilation in the past. 2. Schatzki ring. The patient required dilation of this area approximately 6 to 7 years ago. We will continue his PPI. A GI consult has been ordered. 3. Coronary artery disease. Continue aspirin. 4. Hypertension. Continue lisinopril. 5. Diabetes mellitus. We will hold the patient's empagliflozin and glipizide. We will also continue to hold his metformin, which he has discontinued approximately 6 days ago. The patient will be placed on lispro sliding scale with fingersticks a.c. and h.s. Hemoglobin A1c has been ordered. 6. Hyperlipidemia. The patient has a reported history of hyperlipidemia. He is not on statin medications. We will check lipids and assess need for starting statins. 7. Benign prostatic hyperplasia. Continue finasteride and terazosin. 8. DVT prophylaxis: According to DVT Risk Assessment, the patient scores 4, placing him at high risk. He will be started on heparin. 9. Code status: Full code. TIME SPENT: Approximately 60 minutes was spent on this admission, greater than half that time was spent [id number] with the patient obtaining history, performing physical, and reviewing the plan of care. The case has been reviewed with my attending, Dr. Partida, who is in agreement with the plan of care. TORY UPTON [id number]/[facility] #: [id number] ERICA
[2019-09-21] MEDS: Insulin LISPRO* 1 UNITS UNIT SUBCUT SCH ×2 (17:36→20:54)
[2019-09-21] MEDS: Heparin VIAL(*) 5000 UNITS/ML VIAL (FIVE THOUSAND) SUBCUT SCH (20:55)
[2019-09-21] MEDS ORDERED: Terazosin CAP* 5 MG PO SCH (21:00)
[2019-09-22 05:18] LABS: BUN/Creatinine Ratio 22.5 (8-20); Calcium 9.2 mg/dL (8.6-10.3); EGFR African American 60.1 (>60); EGFR Non-African American 49.7 (>60); HDL Cholesterol 36.2 mg/dL; Potassium 4.1 mmol/L (3.5-5.0)
[2019-09-22] MEDS: Heparin VIAL(*) 5000 UNITS/ML VIAL (FIVE THOUSAND) SUBCUT SCH ×2 (07:08→13:33)
[2019-09-22] MEDS: Insulin LISPRO* 1 UNITS UNIT SUBCUT SCH ×2 (07:37→12:08)
--- NOTE | 2019-09-22 07:55 | PN ---
Subjective - Subjective Reason for Note: Discharge Note History: Discharge summary: I reviewed Jon Benton's presentation with the patient and TORY Adhikari's admitting history and physical. He is a primary care patient at my office. He has multiple risk factors for CAD - T2D, hypertension, dyslipidemia, obesity. He developed a burning pain in his chest. He had one episode of vomiting yesterday. Thus far, he has ruled out as having an MA. He was seen last night by Dr. Cecil Kerns who has scheduled an EGD today after he has a nuclear medicine cardiac stress test. He has no residual symptoms. 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) E11.40 Essential hypertension (Chronic) I10 GERD (gastroesophageal reflux disease) (Chronic) K21.9 Hypercholesterolemia (Chronic) E78.00 Ischemic heart disease (Chronic) I25.9 Microalbuminuria (Chronic) R80.9 Schatzki's ring of distal esophagus (Chronic) K22.2 Type 2 diabetes mellitus (Chronic) Current Medications: Current Medications Aspirin (Aspirin Ec Tab*) 81 mg PO DAILY [facility] Dextrose (Dextrose 50% Vial 50 Ml*) 25 ml IV PUSH .FOR FS < 60 - SS PRN PRN Reason: FS < 60 Finasteride (Proscar Tab*) 5 mg PO DAILY [facility] Heparin Sodium (Porcine) (Heparin Vial(*)) 5,000 units SUBCUT Q8HR [facility] Last Admin: 09/22/19 07:08 Dose: Not Given Insulin Human Lispro (Humalog*) 0 units SUBCUT ACHS [facility]; Protocol Last Admin: 09/22/19 07:37 Dose: Not Given Lisinopril (Prinivil Tab*) 40 mg PO DAILY [facility] Magnesium Oxide (Magox 400 Tab*) 200 mg PO DAILY [facility] Ondansetron HCl (Zofran Inj*) 4 mg IV Q4H PRN PRN Reason: NAUSEA/VOMITING Pantoprazole Sodium (Protonix Tab*) 40 mg PO DAILY [facility] Terazosin HCl (Hytrin Cap*) 5 mg PO BEDTIME [facility] Last Admin: 09/21/19 20:55 Dose: 5 mg - Review of Systems Constitutional Symptoms: Yes: Other - He has some chills with this acute episode , No: Fever Pulmonary: Negative: Cough, Sputum, Hemoptysis, Wheezing, Respiratory Distress, Shortness of Breath Cardiology: Positive: Chest Pain Negative: Shortness of Breath, Palpitations, Swelling of Ankles Gastroenterology: Positive: Abdominal Pain - mild epigastric discomfort yesterday, Vomiting - yesterday - recovered Negative: Nausea, Difficulty Swallowing, Constipation, Diarrhea Genital - Urinary: Negative: Dysuria Home Medications: Home Medications Medication Instructions Recorded Confirmed Type Finasteride TAB* [Proscar TAB*] 5 mg PO DAILY 12/12/16 09/21/19 History glipiZIDE TAB.XL* [Glucotrol Xl*] 10 mg PO BID 12/12/16 09/21/19 History Lisinopril TAB* [Prinivil TAB 10 40 mg PO DAILY 01/13/18 09/21/19 History MG*] Empaglifozin (NF) [Jardiance] 25 mg PO DAILY 04/16/18 09/21/19 History Aspirin [Ecotrin] 81 mg PO DAILY 06/16/19 09/21/19 History Magnesium Oxide [Magnesium] 250 mg PO DAILY 06/16/19 09/21/19 History Pantoprazole Sodium [Protonix] 40 mg PO DAILY 06/16/19 09/21/19 History Terazosin HCl 5 mg PO DAILY 06/16/19 09/21/19 History Allergies: Allergies Allergy/AdvReac Type Severity Reaction Status Date / Time No Known Allergies Allergy Verified 09/21/19 10:42 Objective - Vital Signs Vital Signs: Vital Signs 09/21/19 09/21/19 09/21/19 10:34 10:52 11:00 Temperature 97.4 F Pulse Rate 93 86 Respiratory 16 10 24 Rate Blood Pressure 202/78 166/105 (mmHg) O2 Sat by Pulse 99 96 Oximetry 09/21/19 09/21/19 09/21/19 11:22 11:52 12:00 Temperature Pulse Rate 85 77 60 Respiratory 20 20 20 Rate Blood Pressure 131/81 160/79 (mmHg) O2 Sat by Pulse 96 93 94 Oximetry 09/21/19 09/21/19 09/21/19 12:22 13:00 14:00 Temperature Pulse Rate 79 Respiratory 20 25 18 Rate Blood Pressure 155/83 (mmHg) O2 Sat by Pulse 94 Oximetry 09/21/19 09/21/19 09/21/19 14:09 16:18 17:00 Temperature 98.2 F 98.2 F Pulse Rate 62 69 Respiratory 23 20 18 Rate Blood Pressure 168/78 161/79 152/73 (mmHg) O2 Sat by Pulse 97 97 Oximetry 09/21/19 09/21/19 09/22/19 19:15 23:13 03:15 Temperature 97.8 F 98.4 F 98.4 F Pulse Rate 75 63 74 Respiratory 20 21 21 Rate Blood Pressure 156/60 154/58 122/45 (mmHg) O2 Sat by Pulse 97 96 97 Oximetry - Intake and Output Intake and Output: Intake & Output 09/19/19 09/20/19 09/21/19 09/22/19 11:59 11:59 11:59 11:59 Intake Total 240 Output Total 0 Balance 240 Weight 195 lb 195 lb 8 oz Intake: Oral 240 Output: Urine 0 ADLs: Meal Record Start: 09/21/19 16: 30 Freq: DAILY@0900,1400,1800 Status: Active Protocol: Created 09/21/19 16:30 System (Rec: 09/21/19 16:30 System [id number]) Document 09/21/19 18:00 [id number] (Rec: 09/21/19 19:58 [id number]) Intake and Output Start: 09/21/19 10: 41 Freq: Status: Active Protocol: Created 09/21/19 10:41 System (Rec: 09/21/19 10:41 System [id number]) Intake and Output Start: 09/21/19 16: 30 Freq: DAILY@0600,1400,2200 Status: Active Protocol: Created 09/21/19 16:30 System (Rec: 09/21/19 16:30 System [email or web address]) Document 09/21/19 21:53 [id number] (Rec: 09/21/19 21:54 [id number]) Document 09/22/19 06:00 [id number] (Rec: 09/22/19 06:06 [id number]) - Physical Exam General Physical Exam Comment: Sitting in a chair, warm and well perfused, in no distress. General: No Cyanosis, No Anemia, No Jaundice, No Clubbing Lungs and Chest: Yes: Chest Expansion Full, Chest Expansion Symetrica, Percussion Note Resonant, Vessicular Breath Sounds. No: Crackles, Wheezes Heart Rate and Rhythm: Regular Additional Cardiovascular: Yes: Normal Heart Sounds. No: Heart Murmur, Carotid Bruits, Pedal Edema Abdominal Exam: Yes: Soft. No: Distention, Rigidity, Abdominal Mass, Hepatomegaly, Abdominal Tenderness, Guarding, Rebound Tenderness, Bowel Sounds Present Results - Results Lab Results: Laboratory Results - last 24 hr 09/21/19 09/21/19 09/21/19 11:16 11:16 11:16 WBC 10.0 RBC 4.73 Hgb 16.0 Hct 47 MCV 99 H MCH 34 H MCHC 34 RDW 13 Plt Count 192 MPV 8.2 Neut % (Auto) 89.5 Lymph % (Auto) 5.2 [place] % (Auto) 4.7 Eos % (Auto) 0.2 Baso % (Auto) 0.4 Absolute Neuts (auto) 9.0 H Absolute Lymphs (auto) 0.5 L Absolute Monos (auto) 0.5 Absolute Eos (auto) 0.0 Absolute Basos (auto) 0.0 Absolute Nucleated RBC 0.0 Nucleated RBC % 0.0 INR (Anticoag Therapy) 1.01 Sodium 137 Potassium 4.3 Chloride 103 Carbon Dioxide 23 Anion Gap 11 BUN 36 H Creatinine 1.66 H Est GFR ( Amer) 48.6 Est GFR (Non-Af Amer) 40.2 BUN/Creatinine Ratio 21.7 H Glucose 199 H POC Glucose (mg/dL) Calcium 10.5 H Magnesium 2.1 Total Bilirubin 0.70 AST 19 ALT 20 Alkaline Phosphatase 82 CK-MB (CK-2) 6.2 Troponin I 0.01 B-Natriuretic Peptide Total Protein 7.8 Albumin 4.5 Globulin 3.3 Albumin/Globulin Ratio 1.4 Triglycerides Cholesterol LDL Cholesterol HDL Cholesterol TSH 0.62 Urine Color Urine Appearance Urine pH Ur Specific [place] Urine Protein Urine Ketones Urine Blood Urine Nitrate Urine Bilirubin Urine Urobilinogen Ur Leukocyte Esterase Urine WBC (Auto) Urine RBC (Auto) Urine Bacteria Urine Glucose 09/21/19 09/21/19 09/21/19 11:16 11:19 14:06 WBC RBC Hgb Hct MCV MCH MCHC RDW Plt Count MPV Neut % (Auto) Lymph % (Auto) [place] % (Auto) Eos % (Auto) Baso % (Auto) Absolute Neuts (auto) Absolute Lymphs (auto) Absolute Monos (auto) Absolute Eos (auto) Absolute Basos (auto) Absolute Nucleated RBC Nucleated RBC % INR (Anticoag Therapy) Sodium Potassium Chloride Carbon Dioxide Anion Gap BUN Creatinine Est GFR ( Amer) Est GFR (Non-Af Amer) BUN/Creatinine Ratio Glucose POC Glucose (mg/dL) Calcium Magnesium Total Bilirubin AST ALT Alkaline Phosphatase CK-MB (CK-2) Troponin I 0.01 B-Natriuretic Peptide 48 Total Protein Albumin Globulin Albumin/Globulin Ratio Triglycerides Cholesterol LDL Cholesterol HDL Cholesterol TSH Urine Color Yellow Urine Appearance Clear Urine pH 5.0 Ur Specific [place] 1.026 Urine Protein 2+(100 mg/dl) A Urine Ketones Trace A Urine Blood Negative Urine Nitrate Negative Urine Bilirubin Negative Urine Urobilinogen Negative Ur Leukocyte Esterase Negative Urine WBC (Auto) Absent Urine RBC (Auto) Absent Urine Bacteria Absent Urine Glucose 3+(>=500 mg/dl) A 09/21/19 09/21/19 09/21/19 16:32 16:58 19:29 WBC RBC Hgb Hct MCV MCH MCHC RDW Plt Count MPV Neut % (Auto) Lymph % (Auto) [place] % (Auto) Eos % (Auto) Baso % (Auto) Absolute Neuts (auto) Absolute Lymphs (auto) Absolute Monos (auto) Absolute Eos (auto) Absolute Basos (auto) Absolute Nucleated RBC Nucleated RBC % INR (Anticoag Therapy) Sodium Potassium Chloride Carbon Dioxide Anion Gap BUN Creatinine Est GFR ( Amer) Est GFR (Non-Af Amer) BUN/Creatinine Ratio Glucose POC Glucose (mg/dL) 87 Calcium Magnesium Total Bilirubin AST ALT Alkaline Phosphatase CK-MB (CK-2) Troponin I 0.01 0.02 B-Natriuretic Peptide Total Protein Albumin Globulin Albumin/Globulin Ratio Triglycerides Cholesterol LDL Cholesterol HDL Cholesterol TSH Urine Color Urine Appearance Urine pH Ur Specific [place] Urine Protein Urine Ketones Urine Blood Urine Nitrate Urine Bilirubin Urine Urobilinogen Ur Leukocyte Esterase Urine WBC (Auto) Urine RBC (Auto) Urine Bacteria Urine Glucose 09/21/19 09/22/19 09/22/19 20:03 04:20 07:33 WBC RBC Hgb Hct MCV MCH MCHC RDW Plt Count MPV Neut % (Auto) Lymph % (Auto) [place] % (Auto) Eos % (Auto) Baso % (Auto) Absolute Neuts (auto) Absolute Lymphs (auto) Absolute Monos (auto) Absolute Eos (auto) Absolute Basos (auto) Absolute Nucleated RBC Nucleated RBC % INR (Anticoag Therapy) Sodium 137 Potassium 4.1 Chloride 107 Carbon Dioxide 24 Anion Gap 6 BUN 31 H Creatinine 1.38 H Est GFR ( Amer) 60.1 Est GFR (Non-Af Amer) 49.7 BUN/Creatinine Ratio 22.5 H Glucose 110 H POC Glucose (mg/dL) 222 H 56 L Calcium 9.2 Magnesium Total Bilirubin AST ALT Alkaline Phosphatase CK-MB (CK-2) Troponin I B-Natriuretic Peptide Total Protein Albumin Globulin Albumin/Globulin Ratio Triglycerides 172 Cholesterol 174 LDL Cholesterol 103 HDL Cholesterol 36.2 TSH Urine Color Urine Appearance Urine pH Ur Specific [place] Urine Protein Urine Ketones Urine Blood Urine Nitrate Urine Bilirubin Urine Urobilinogen Ur Leukocyte Esterase Urine WBC (Auto) Urine RBC (Auto) Urine Bacteria Urine Glucose Radiology Results: Patient Name: JON BENTON Medical Record#: [id number] Ordering Physician: Kasi Suárez MD Acct.#: [id number] : 1940 Age: 79 Sex: M Location: EMERGENCY DEPARTMENT Exam Date: 09/21/19 1053 ADM Status: REG ER Order Information: CHEST AP OR PORT Accession Number: [id number] CPT: 94127 Indication: Chest pain. Epigastric pain. Nausea, eructation. Former tobacco use. Comparison: February 28, 2018 Technique: Upright AP 1125 hours Report: Suboptimal inspiration compared with the prior exam. No focal pulmonary lesion, compelling alveolar consolidation, pleural effusion, pneumothorax. Negative for cardiomegaly accounting for low lung volumes. Unremarkable central pulmonary vasculature. Mildly tortuous thoracic aorta without change. Negative for free air beneath the diaphragm. IMPRESSION: #. No evidence for acute intrathoracic disease. <Electronically signed by Kasi Cody MD in OV> 09/21/19 1134 Dictated By: Kasi Cody MD Dictated Date/Time: 09/21/19 1132 Transcribed Date/Time: 09/21/19 1132 Copy to: EKG Report: EKG Rate 76 WV 184 QTc 432 QRS axis 25 Early transition R waves in V leads. Qs III and AVF. NO ST-T changes. 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 It was associated with burping, nausea and one episode of vomiting. He has ruled out for a myocardial infarction. Dr. Nj Hitchcock is his shovel oiler and conducted a NM stress test 06/25/2019 that was negative. He also had a transthoracic echocardiogram 06/25/2019 that showed mild concentric left ventricular hypertrophy. Owing to his multiple risk factors, we are checking a NM stress test today. Following this he will have an EGD. GERD (gastroesophageal reflux disease) (Chronic) Schatzki's ring of distal esophagus (Chronic) This may prove to be an episode of esophagitis, or he may have some complications of his Schatzki's ring. Dr. 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 It can cause GI side effects, but not usually chest pain like this. Essential hypertension (Chronic) controlled Hypercholesterolemia (Chronic) Treated Ischemic heart disease (Chronic) See above Microalbuminuria (Chronic) secondary diagnosis. I discussed the above with Jon Benton. If these tests are negative, we will discharge him home today. Disposition: Home Condition: Good.
--- NOTE | 2019-09-22 08:21 | CONS ---
CONSULTATION REPORT: DATE OF CONSULT: 09/21/19 REQUESTING PHYSICIAN: TORY Adhikari INDICATION: Chest pain. NARRATIVE: Mr. Mata is a 79-year-old gentleman, well known to myself. I had last seen him a couple of years ago. He does have a history of GERD and dysphagia. He has a known Schatzki's ring, which was last looked at in 2011 and broke it open. The patient states that his dysphagia is under pretty good control, maybe once or twice a year he will have symptoms of food getting stuck ; however, he will slow down his eating, drink liquids and it seems to pass pretty quickly. He also has a past medical history of coronary artery disease with stents, diabetes, hypertension, hyperlipidemia. The patient states that for the past week or so he has felt a burning-type sensation behind his sternum. His diabetes unfortunately has not been under good enough control mainly due to the fact that the patient is noncompliant with diet and he was recommended to restart his metformin, he had been on it 5 years ago. After taking 2 doses of metformin, he states that his heartburn worsened dramatically and he remembered from 5 years earlier having similar side effects to the metformin. He stopped the metformin after 2 doses; however, the burning continued behind his sternum. He does have some increased gas and belching. He had nausea yesterday with 1 episode of vomiting. He continues to take his PPI on a regular basis, no change in schedule there. Initially, the pain and burning was an 8/10, not it is down to a 2. He is definitely feeling better. The patient was admitted to the hospital to rule out cardiac etiologies. PAST MEDICAL HISTORY: Significant for coronary artery disease, hyperlipidemia, hypertension, diabetes, obstructive sleep apnea, Schatzki's ring, GERD, BPH. PAST SURGICAL HISTORY: Includes hip surgery, retinal surgery, cardiac cath. MEDICATIONS: Include: 1. Aspirin. 2. Terazosin. 3. Pantoprazole. 4. Lisinopril. 5. Glipizide. 6. Finasteride. 7. Empagliflozin. ALLERGIES: No known drug allergies. FAMILY HISTORY: Diabetes, colon cancer. SOCIAL HISTORY: No tobacco; occasional alcohol. REVIEW OF SYSTEMS: Twelve systems were reviewed and other than that mentioned in the HPI were unremarkable. PHYSICAL EXAM: Temperature is 98.2, blood pressure is 161/79, pulse is 62. General: Well-appearing male, in no apparent distress. Alert, oriented, pleasant, fluent. HEENT: Mucous membranes are moist without lesions, ulcers, or exudate. Neck is supple. Trachea is midline. Head is normocephalic, atraumatic. Heart: Regular rate and rhythm. No murmurs, rubs, or gallops. Lungs: Clear to auscultation bilaterally. No wheezes, rales, or rhonchi. Abdomen: Positive bowel sounds. Soft, nontender, nondistended. Musculoskeletal: No CVA or spinal tenderness. No sternal tenderness to palpation. DIAGNOSTIC STUDIES/LAB DATA: Of note, white count is 10.0, hemoglobin 16, platelets 192. INR 1.10. BUN 31, creatinine 1.38. ASSESSMENT AND PLAN: This is a pleasant 79-year-old gentleman with epigastric pain described as burning in nature, this very well could be gastrointestinal. He has been admitted to the hospital for cardiac evaluation. I think once the cardiac evaluation is over, and if it is within normal limits, the patient would benefit from a repeat EGD to evaluate for any erosive esophagitis or hiatal hernia. His dysphagia really does not seem to be worsening, thus I doubt this is the worsening of his Schatzki's ring. Likely, he is going to need an increase in his PPI therapy to likely twice a day, potentially adding in Carafate. He could potentially have his EGD later on Saturday afternoon once his cardiac evaluation is over. [id number]/[facility] #: [id number] MTDD
[2019-09-22] MEDS ORDERED: Pantoprazole TAB * 40 MG TAB PO SCH (09:00)
[2019-09-22] MEDS ORDERED: Magnesium Oxide TAB* 400 MG PO SCH (09:00)
[2019-09-22] MEDS ORDERED: Lisinopril TAB* 10 MG PO SCH (09:00)
[2019-09-22] MEDS ORDERED: Lactated Ringers 1000 ML Bag* 1,000 ML IV SCH (09:00)
[2019-09-22] MEDS ORDERED: Finasteride TAB* 5 MG PO SCH (09:00)
[2019-09-22] MEDS ORDERED: Aspirin EC TAB* 81 MG TAB.EC PO SCH (09:00)
[2019-09-22] MEDS ORDERED: Regadenoson* 0.4 MG/5 ML SYRINGE ONE (10:42)
[2019-09-22] MEDS ORDERED: Aminophylline IV* 25 MG/ML 10 ML VIAL ONE (10:42)
[2019-09-22] MEDS ORDERED: Midazolam* 1 MG/ML 10 ML VIAL (10 MG) ONE (12:12)
[2019-09-22] MEDS ORDERED: fentaNYL* 50 MCG/ML 2 ML VIAL (100 MCG VIAL) ONE (12:12)
[2019-09-22 13:11] VITALS: BP 138/61
--- NOTE | 2019-09-22 21:15 | PRO ---
DATE: 09/22/19 - ROOM #[id number] REFERRING PHYSICIAN: Ron Barajas MD. * PROCEDURE: Upper gastrointestinal endoscopy and biopsy of midesophagus at 36, CLOtest, gastric greater curvature, gastric body, and third portion of duodenum. 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 He was seen yesterday by Dr. Kerns. Per the review reveals that he has been taking his pantoprazole at bedtime. Per his , he has not been taking any NSAIDs. Earlier today, he had a nuclear stress test which was benign, though the final report is not out. He had one 4 months ago. He had been taking blood thinners in the past. Plavix around 8 or 9 years ago and Eliquis at some point, but complained of bleeding from cat scratches. There is a good appetite and stable weight. He did loose a great deal of weight 10 to 15 years ago, and sleep apnea and insulin-dependent diabetes resolved. Informed consent was obtained and he gave verbal permission for esophageal dilation if necessary. ENDOSCOPIST: Dr. Arriaga. MEDICATIONS: Midazolam 5, fentanyl 50. FINDINGS: He is a healthy appearing older man, in no overt distress. He was positioned left side down and moderate sedation induced with sequential doses of medication. He tolerated the exam well. ESOPHAGOGASTRODUODENOSCOPY: Larynx - symmetric views without gross disease. Esophagus - easily entered. The mucosa is normal in the upper and mid esophagus down to around 30 to 31 and then some focal spots of exudate appearing in steppingstone-like columns, became more and more prevalent and by 40 to 41 were essentially circumferential and confluent. There was some narrowing, but not a discrete structure. There was no mass. There was no bleeding. The changes were severe. Stomach - no gross hiatal hernia on retroflexion. There was a mild amount of granularity and erythema, but no ulcers per se and no deformity. There was not a great amount of gastric secretions or an abnormal appearance to the rugal folds. The antrum appeared normal. Duodenum - the pylorus was normal. The bulb had many necrotic appearing erosions with some eschar. These continued down into the second and then lesser degrees into the third portion. There were even some small erosions in the fourth portion. It was a starry pamela like configuration. During withdrawal, biopsies were taken from the duodenum, stomach, esophagus, and a CLOtest. IMPRESSION: 1. Diminutive hiatal hernia. 2. Severe GERD, confluent in the lower area. 3. Mild gastritis. 4. Duodenal erosions. Multiple maximal at the apex and second portion. The patient's PPI will be made morning and before dinner, and he will have a fasting gastrin at some point with followup with Dr. Barajas and Dr. Kerns. [id number]/[facility] #: [id number] [facility]PITALNikole
== END 2019-09-22 15:59 | disposition home or self-care (01) ==
LOC: ED 10:34 → MEDTELE 15:22
PROVIDERS: ADMIT Internal Medicine; ATTEND Internal Medicine
PROC: 0DB98ZX Excision of Duodenum, Via Natural or Artificial Opening Endoscopic, Diagnostic (ICD-10-PCS; principal; 2019-09-22)
DX: R07.9 Chest pain, unspecified (principal); K29.70 Gastritis, unspecified, without bleeding; K26.9 Duodenal ulcer, unspecified as acute or chronic, without hemorrhage or perforation; K44.9 Diaphragmatic hernia without obstruction or gangrene; K21.9 Gastro-esophageal reflux disease without esophagitis; R11.2 Nausea with vomiting, unspecified; I25.10 Atherosclerotic heart disease of native coronary artery without angina pectoris; Z95.5 Presence of coronary angioplasty implant and graft; I10 Essential (primary) hypertension; E78.5 Hyperlipidemia, unspecified; E11.9 Type 2 diabetes mellitus without complications; J44.9 Chronic obstructive pulmonary disease, unspecified; K22.2 Esophageal obstruction; N40.0 Benign prostatic hyperplasia without lower urinary tract symptoms; Z79.82 Long term (current) use of aspirin; Z79.899 Other long term (current) drug therapy; Z79.01 Long term (current) use of anticoagulants; Z87.891 Personal history of nicotine dependence; G47.30 Sleep apnea, unspecified; R80.9 Proteinuria, unspecified
CPT/HCPCS: 36415; 71045; 78452; 80048; 80053; 80061; 81003; 81015; 82553; 83036; 83735; 83880; 84443; 84484; 85025; 85610; 87077; 93005; 93017; 99156; 99157; 99284; A9270-GY; A9502; G0378; J0280; J1644; J2250; J2785; J3010